=== PATIENT | female | born 2005 | race Hispanic/Latino ===

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

== ENCOUNTER 2023-05-08 00:14 | Inpatient (IN) | payer OTHER ==
--- OUTSIDE RECORDS SUMMARY | 2023-05-08 00:24 | XMS REPORT | Continuity of Care Document ---
Author Name Unknown Address [address] [place] [address] [facility] Address [address] [place] [address] Care Team Providers Care Vice President Of Operations Name Role Phone Rupert Mabry Primary Care Physician + [phone] JABARI CRUZ K.HLuis Manuel Attending Clinician UnavailMARCIAL Fritz Attending Clinician UnavailMARCIAL Fritz Attending Clinician Unavailoscar Cruz MD, Jabari K.H. Attending Clinician + [phone] Doctor Unassigned, [place] Attending Clinician U kendall Leiva MD, [place] Attending Clinician + [phone] Yue Leroy MD Attending Clinician [phone] Brando Yao MD Attending Clinician [phone] Pcp-Lab Attending Clinician Unavailable YUE LEROY Attending Clinician Unavail able Justin Alejo MD Attending Clinician +[phone] Lab, Ang - Db Attending Clinician Unavailable JUSTIN ALEJO Attending Clinician Unavailable Efrain GUAJARDO, Von Attending Clinician +[phone] Rupert Mabry Attending Clinician [phone] KATHLEEN WALKER Attending Clinician Unavailable Edwin Denny MD Attending Clinician [phone] Kathleen Walker MD Attending Clinician [phone] Katie Garcia Attending Clinician Dejon Bains Attending Clinician [phone] DEJON MALIN Attending Clinician Unavailable Payers Payer Name Policy Type Policy Number Effective Date Expirati on Date Source Problems Condition Name Condition Details Condition Category Status Onset Date Resolution Date Last Treatment Date Treating Clinician Comments Source Irregular menstrual cycle Irregular menstrual cycle Disease Active 10-05 00:00: 00 [facility] Dysmenorrh ea Dysmenorrh ea Disease Active 10-05 00:00: 00 [facility] Oral contracept riana pill surveillan ce Oral contracept riana pill surveillan ce Disease Active 10-05 00:00: 00 [facility] Down syndrome Down syndrome Disease Active 10-05 00:00: 00 [facility] Acne, unspecifie d acne type Acne, unspecifie d acne type Disease Active 10-05 00:00: 00 [facility] Other atopic dermatitis Other atopic dermatitis Disease Active 10-05 00:00: 00 [facility] Cutaneous abscess of buttock Cutaneous abscess of buttock Disease Active 10-05 00:00: 00 [facility] BMI 31.0-31.9, adult BMI 31.0-31.9, adult Disease Active 10-05 00:00: 00 [facility] 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 09-02 00:00: 00 [facility] Allergies, Adverse Reactions, Alerts Allergy Name Allergy Type Status Severity Reaction(s) Onset Date Inactive Date Treating Clinician Comments Source NO KNOWN ALLERGIE S Drug Class Active [facility] Social History Social Habit Start Date Stop Date Quantity Comments Source Gender identity [facility] Sexual orientation U [facility] Alcohol intake 2022-10-05 00:00:00 2022-10-05 00:00:00 Lifetime non-drinker (finding) [facility] Exposure to SARS-CoV-2 (event) 2022-07-03 00:00:00 2022-07-13 13:49:00 Not sure [facility] Tobacco use and exposure 2022-07-13 00:00:00 2022-07-13 00:00:00 Smokeless tobacco non-user [facility] History of Social function 2021-09-02 00:00:00 2021-09-02 00:00:00 [facility] Sex Assigned At 2005 00:00:00 2005 00:00:00 [facility] Smoking Status Start Date Stop Date Source Never smoked tobacco [facility] Medications Ordered Medication Name Filled Medication Name Start Date Stop Date Current Medication? Ordering Clinician Indication Dosage Frequency Signature (SIG) Comments Components Source triamcinolo ne acetonide 0.1 % cream 10-05 00:00: 00 Yes [id number] Apply to area(s) 2 (two) times daily as needed for Itching (back). [facility] mupirocin 2 % ointment 10-05 00:00: 00 Yes [id number] Apply to area(s) 3 (three) times daily. [facility] norethindro ne-e.estrad ioL-iron (BLISOVI FE 1.5/30, 28,) 1.5 mg-30 mcg (21)/75 mg (7) per tablet 10-05 00:00: 00 Yes [id number] 1{tbl} Take 1 tablet by mouth in the morning. [facility] Benzoyl Peroxide 2.5 % gel 10-05 00:00: 00 Yes [id number] Apply to area(s) 2 (two) times daily as needed (acne). [facility] triamcinolo ne acetonide 0.1 % cream 10-05 00:00: 00 Yes [id number] Apply to area(s) 2 (two) times daily as needed for Itching (back). [facility] mupirocin 2 % ointment 10-05 00:00: 00 Yes [id number] Apply to area(s) 3 (three) times daily. [facility] norethindro ne-e.estrad ioL-iron (BLISOVI FE 1.5/30, 28,) 1.5 mg-30 mcg (21)/75 mg (7) per tablet 10-05 00:00: 00 Yes [id number] 1{tbl} Take 1 tablet by mouth in the morning. [facility] Benzoyl Peroxide 2.5 % gel 10-05 00:00: 00 Yes [id number] Apply to area(s) 2 (two) times daily as needed (acne). [facility] triamcinolo ne acetonide 0.1 % cream 10-05 00:00: 00 Yes [id number] Apply to area(s) 2 (two) times daily as needed for Itching (back). [facility] mupirocin 2 % ointment 10-05 00:00: 00 Yes [id number] Apply to area(s) 3 (three) times daily. [facility] norethindro ne-e.estrad ioL-iron (BLISOVI FE 1.5/30, 28,) 1.5 mg-30 mcg (21)/75 mg (7) per tablet 10-05 00:00: 00 Yes [id number] 1{tbl} Take 1 tablet by mouth in the morning. [facility] Benzoyl Peroxide 2.5 % gel 10-05 00:00: 00 Yes [id number] Apply to area(s) 2 (two) times daily as needed (acne). [facility] norethindro ne-e.estrad iol-iron (BLISOVI 24 FE ORAL) 07-13 15:26: 33 07-13 00:00 :00 No Take by mouth. [facility] norethindro ne-e.estrad iol-iron (BLISOVI 24 FE ORAL) 07-13 15:26: 33 07-13 00:00 :00 No Take by mouth. [facility] fluticasone propion/charlie meterol (ADVAIR DISKUS INHALE) 07-13 14:06: 50 Yes Inhale. [facility] montelukast sodium (MONTELUKAS T ORAL) 07-13 14:06: 50 Yes Take by mouth. [facility] marintobiasneli tessluisad iol-iron (BLISOVI 24 FE ORAL) 07-13 14:06: 50 Yes Take by mouth. [facility] fluticasone propion/charlie meterol (ADVAIR DISKUS INHALE) 07-13 14:06: 50 Yes Inhale. [facility] montelukast sodium (MONTELUKAS T ORAL) 07-13 14:06: 50 Yes Take by mouth. [facility] fluticasone propion/charlie meterol (ADVAIR DISKUS INHALE) 07-13 14:06: 50 Yes Inhale. [facility] montelukast sodium (MONTELUKAS T ORAL) 07-13 14:06: 50 Yes Take by mouth. [facility] fluticasone propion/charlie meterol (ADVAIR DISKUS INHALE) 07-13 14:06: 50 Yes Inhale. [facility] montelukast sodium (MONTELUKAS T ORAL) 07-13 14:06: 50 Yes Take by mouth. [facility] fluticasone propion/charlie meterol (ADVAIR DISKUS INHALE) 07-13 14:06: 50 Yes Inhale. [facility] montelukast sodium (MONTELUKAS T ORAL) 07-13 14:06: 50 Yes Take by mouth. [facility] fluticasone propion/charlie meterol (ADVAIR DISKUS INHALE) 07-13 14:06: 50 Yes Inhale. [facility] montelukast sodium (MONTELUKAS T ORAL) 07-13 14:06: 50 Yes Take by mouth. [facility] fluticasone propion/charlie meterol (ADVAIR DISKUS INHALE) 07-13 14:06: 50 Yes Inhale. [facility] montelukast sodium (MONTELUKAS T ORAL) 07-13 14:06: 50 Yes Take by mouth. [facility] fluticasone propion/charlie meterol (ADVAIR DISKUS INHALE) 07-13 14:06: 50 Yes Inhale. [facility] montelukast sodium (MONTELUKAS T ORAL) 07-13 14:06: 50 Yes Take by mouth. [facility] norethindro ne-e.estrad ioL-iron (BLISOVI FE 1.5/, 28,) 1.5 mg-30 mcg (21)/75 mg (7) per tablet 07-13 00:00: 00 Yes [id number] 1{tbl} Take 1 tablet by mouth in the morning. [facility] ibuprofen 600 mg tablet 07-13 00:00: 00 Yes [id number] 600mg Take 1 tablet by mouth every 6 (six) hours as needed for Pain (scale 4-6). [facility] acetonide 0.1 % cream 07-13 00:00: 00 Yes [id number] Apply to area(s) 2 (two) times daily. [facility] mupirocin 2 % ointment 07-13 00:00: 00 Yes [id number] Apply to area(s) 3 (three) times daily. [facility] norethindro ne-e.estrad ioL-iron (BLISOVI FE 1.5/30, 28,) 1.5 mg-30 mcg (21)/75 mg (7) per tablet 07-13 00:00: 00 Yes [id number] 1{tbl} Take 1 tablet by mouth in the morning. [facility] ibuprofen 600 mg tablet 07-13 00:00: 00 Yes [id number] 600mg Take 1 tablet by mouth every 6 (six) hours as needed for Pain (scale 4-6). [facility] triamcinolo ne acetonide 0.1 % cream 07-13 00:00: 00 Yes [id number] Apply to area(s) 2 (two) times daily. [facility]int[facility] 07-13 00:00: 00 Yes [id number] Apply to area(s) 3 (three) times daily. [facility] ioL-iron (BLISOVI FE 1.5/, 28,) 1.5 mg-30 mcg (21)/75 mg (7) per tablet 07-13 00:00: 00 Yes [id number] 1{tbl} Take 1 tablet by mouth in the morning. [facility] ibuprofen 600 mg tablet 07-13 00:00: 00 Yes [id number] 600mg Take 1 tablet by mouth every 6 (six) hours as needed for Pain (scale 4-6). [facility] triamcinolo ne acetonide 0.1 % cream 07-13 00:00: 00 Yes [id number] Apply to area(s) 2 (two) times daily. [facility] mupirocin 2 % ointment 07-13 00:00: 00 Yes [id number] Apply to area(s) 3 (three) times daily. [facility] norethindro ne-e.estrad ioL-iron (BLISOVI FE 1.5, ,) 1.5 mg-30 mcg (21)/75 mg (7) per tablet 07-13 00:00: 00 Yes [id number] 1{tbl} Take 1 tablet by mouth in the morning. [facility] ibuprofen 600 mg tablet 07-13 00:00: 00 Yes [id number] 600mg Take 1 tablet by mouth every 6 (six) hours as needed for Pain (scale 4-6). [facility] triamcinolo ne acetonide 0.1 % cream 07-13 00:00: 00 Yes [id number] Apply to area(s) 2 (two) times daily. [facility] mupirocin 2 % ointment 07-13 00:00: 00 Yes [id number] Apply to area(s) 3 (three) times daily. [facility] ibuprofen 600 mg tablet 07-13 00:00: 00 Yes [id number] 600mg Take 1 tablet by mouth every 6 (six) hours as needed for Pain (scale 4-6). [facility] triamcinolo ne acetonide 0.1 % cream 07-13 00:00: 00 Yes [id number] Apply to area(s) 2 (two) times daily. [facility] ibuprofen 600 mg tablet 07-13 00:00: 00 Yes [id number] 600mg Take 1 tablet by mouth every 6 (six) hours as needed for Pain (scale 4-6). [facility] triamcinolo ne acetonide 0.1 % cream 07-13 00:00: 00 Yes [id number] Apply to area(s) 2 (two) times daily. [facility] ibuprofen 600 mg tablet 07-13 00:00: 00 Yes [id number] 600mg Take 1 tablet by mouth every 6 (six) hours as needed for Pain (scale 4-6). [facility] triamcinolo ne acetonide 0.1 % cream 07-13 00:00: 00 Yes [id number] Apply to area(s) 2 (two) times daily. [facility] norethindro ne-e.estrad ioL-iron (BLISOVI FE 1.5/30, 28,) 1.5 mg-30 mcg (21)/75 mg (7) per tablet 07-13 00:00: 00 10-05 00:00 :00 No [id number] 1{tbl} Take 1 tablet by mouth in the morning. [facility] mupirocin 2 % ointment 07-13 00:00: 00 10-05 00:00 :00 No [id number] Apply to area(s) 3 (three) times daily. [facility] norethindro ne-e.estrad ioL-iron (BLISOVI FE 1.5/30, 28,) 1.5 mg-30 mcg (21)/75 mg (7) per tablet 07-13 00:00: 00 10-05 00:00 :00 No [id number] 1{tbl} Take 1 tablet by mouth in the morning. [facility] mupirocin 2 % ointment 07-13 00:00: 00 10-05 00:00 :00 No [id number] Apply to area(s) 3 (three) times daily. [facility] norethindro ne-e.estrad ioL-iron (BLISOVI FE 1.5/30, 28,) 1.5 mg-30 mcg (21)/75 mg (7) per tablet 07-13 00:00: 00 10-05 00:00 :00 No [id number] 1{tbl} Take 1 tablet by mouth in the morning. [facility] mupirocin 2 % ointment 07-13 00:00: 00 10-05 00:00 :00 No [id number] Apply to area(s) 3 (three) times daily. [facility] sulfaSALAzi ne 500 mg EC tablet 03-02 00:00: 00 Yes [id number] 500mg Take 1 tablet by mouth in the morning and 1 tablet in the evening. [facility] sulfaSALAzi ne 500 mg EC tablet 03-02 00:00: 00 Yes [id number] 500mg Take 1 tablet by mouth in the morning and 1 tablet in the evening. [facility] sulfaSALAzi ne 500 mg EC tablet 03-02 00:00: 00 Yes [id number] 500mg Take 1 tablet by mouth in the morning and 1 tablet in the evening. [facility] sulfaSALAzi ne 500 mg EC tablet 03-02 00:00: 00 Yes [id number] 500mg Take 1 tablet by mouth in the morning and 1 tablet in the evening. [facility] sulfaSALAzi ne 500 mg EC tablet 03-02 00:00: 00 Yes [id number] 500mg Take 1 tablet by mouth in the morning and 1 tablet in the evening. [facility] sulfaSALAzi ne 500 mg EC tablet 03-02 00:00: 00 Yes [id number] 500mg Take 1 tablet by mouth in the morning and 1 tablet in the evening. [facility] sulfaSALAzi ne 500 mg EC tablet 03-02 00:00: 00 Yes [id number] 500mg Take 1 tablet by mouth in the morning and 1 tablet in the evening. [facility] sulfaSALAzi ne 500 mg EC tablet 03-02 00:00: 00 Yes [id number] 500mg Take 1 tablet by mouth in the morning and 1 tablet in the evening. [facility] sulfaSALAzi ne 500 mg EC tablet 03-02 00:00: 00 Yes [id number] 500mg Take 1 tablet by mouth in the morning and 1 tablet in the evening. [facility] sulfaSALAzi ne 500 mg EC tablet 03-02 00:00: 00 Yes [id number] 500mg Take 1 tablet by mouth in the morning and 1 tablet in the evening. [facility] sulfaSALAzi ne 500 mg EC tablet 03-02 00:00: 00 Yes [id number] 500mg Take 1 tablet by mouth in the morning and 1 tablet in the evening. [facility] sulfaSALAzi ne 500 mg EC tablet 03-02 00:00: 00 Yes [id number] 500mg Take 1 tablet by mouth in the morning and 1 tablet in the evening. [facility] sulfaSALAzi ne 500 mg EC tablet 03-02 00:00: 00 Yes [id number] 500mg Take 1 tablet by mouth in the morning and 1 tablet in the evening. [facility] sulfaSALAzi ne 500 mg EC tablet 03-02 00:00: 00 Yes [id number] 500mg Take 1 tablet by mouth in the morning and 1 tablet in the evening. [facility] sulfaSALAzi ne 500 mg EC tablet - 00:00: 00 Yes [id number] 500mg Take 1 tablet by mouth in the morning and 1 tablet in the evening. [facility] fluticasone propion/charlie meterol (ADVAIR DISKUS INHALE) 2021-02 015 19:39: 13 Yes Inhale. [facility] montelukast sodium (MONTELUKAS T ORAL) 2021-02 015 19:39: 13 Yes Take by mouth. [facility] fluticasone propion/charlie meterol (ADVAIR DISKUS INHALE) 2021-02 015 19:39: 13 Yes Inhale. [facility] montelukast sodium (MONTELUKAS T ORAL) 2021-02 015 19:39: 13 Yes Take by mouth. [facility] fluticasone propion/charlie meterol (ADVAIR DISKUS INHALE) 2021-02 015 19:39: 13 Yes Inhale. [facility] montelukast sodium (MONTELUKAS T ORAL) 2021-02 015 19:39: 13 Yes Take by mouth. [facility] fluticasone propion/charlie meterol (ADVAIR DISKUS INHALE) 2021-02 015 19:39: 13 Yes Inhale. [facility] montelukast sodium (MONTELUKAS T ORAL) 2021-02 015 19:39: 13 Yes Take by mouth. [facility] fluticasone propion/charlie meterol (ADVAIR DISKUS INHALE) 2021-02 015 19:39: 13 Yes Inhale. [facility] montelukast sodium (MONTELUKAS T ORAL) 2021-02 015 19:39: 13 Yes Take by mouth. [facility] fluticasone propion/charlie meterol (ADVAIR DISKUS INHALE) 2021-02 015 19:39: 13 Yes Inhale. [facility] montelukast sodium (MONTELUKAS T ORAL) 2021-02 0-15 19:39: 13 Yes Take by mouth. [facility] fluticasone propion/charlie meterol (ADVAIR DISKUS INHALE) 2021-02 015 19:39: 13 Yes Inhale. [facility] montelukast sodium (MONTELUKAS T ORAL) 2021-02 015 19:39: 13 Yes Take by mouth. [facility] fluticasone propion/charlie meterol (ADVAIR DISKUS INHALE) 2021-02 015 19:39: 13 Yes Inhale. [facility] montelukast sodium (MONTELUKAS T ORAL) 2021-02 015 19:39: 13 Yes Take by mouth. [facility] fluticasone propion/charlie meterol (ADVAIR DISKUS INHALE) 2021-02 015 19:39: 13 Yes Inhale. [facility] montelukast sodium (MONTELUKAS T ORAL) 2021-02 015 19:39: 13 Yes Take by mouth. [facility] fluticasone propion/charlie meterol (ADVAIR DISKUS INHALE) 2021-02 015 19:39: 13 Yes Inhale. [facility] montelukast sodium (MONTELUKAS T ORAL) 2021-02 015 19:39: 13 Yes Take by mouth. [facility] fluticasone propion/charlie meterol (ADVAIR DISKUS INHALE) 2021-02 015 19:39: 13 Yes Inhale. [facility] montelukast sodium (MONTELUKAS T ORAL) 2021-02 015 19:39: 13 Yes Take by mouth. [facility] fluticasone propion/charlie meterol (ADVAIR DISKUS INHALE) 2021-02 015 19:39: 13 Yes Inhale. [facility] montelukast sodium (MONTELUKAS T ORAL) 2021-02 015 19:39: 13 Yes Take by mouth. [facility] meloxicam 7.5 mg tablet 2021-02 0-14 00:00: 00 02-04 05:59 :00 No [id number] 7.5mg Take 1 tablet by mouth in the morning for 60 days. [facility] meloxicam 7.5 mg tablet 2021-02 00:00: 00 02-04 05:59 :00 No [id number] 7.5mg Take 1 tablet by mouth in the morning for 60 days. [facility] meloxicam 7.5 mg tablet 2021-02 00:00: 00 02-04 05:59 :00 No [id number] 7.5mg Take 1 tablet by mouth in the morning for 60 days. [facility] meloxicam 7.5 mg tablet 2021-02 00:00: 00 02-04 05:59 :00 No [id number] 7.5mg Take 1 tablet by mouth in the morning for 60 days. [facility] meloxicam 7.5 mg tablet 2021-02 00:00: 00 02-04 05:59 :00 No [id number] 7.5mg Take 1 tablet by mouth in the morning for 60 days. [facility] meloxicam 7.5 mg tablet 2021-02 00:00: 00 02-04 05:59 :00 No [id number] 7.5mg Take 1 tablet by mouth in the morning for 60 days. [facility] JANETH/POLY/HC HILARIO 1% OTIC 11-10 00:00: 00 No AMOX/K CLAV TAB [id number] 11-10 00:00: 00 No JANETH/POLY/HC HILARIO 1% OTIC - 00:00: 00 No AMOX/K CLAV TAB [id number] 11-10 00:00: 00 No JANETH/POLY/HC HILARIO 1% OTIC - 00:00: 00 No AMOX/K CLAV TAB [id number] - 00:00: 00 No &lt 202-0 7- 00:00: 00 No TAKE 1 TABLET BY MOUTH TWICE DAILY 0 09-13 00:00: 00 No &lt 2022-0 09-13 00:00: 00 No 300 &lt 2022-0 09-13 00:00: 00 No 20 &lt 2022-0 09-13 00:00: 00 No Macrobid 100 mg capsule 0 09-13 00:00: 00 No 1mg &lt 2022-0 09-13 00:00: 00 No TAKE 1 TABLET BY MOUTH TWICE DAILY 2021-0 09-13 00:00: 00 No &lt 2022-0 09-13 00:00: 00 No 300 &lt 2022-0 09-13 00:00: 00 No 20 &lt 2022-0 09-13 00:00: 00 No Macrobid 100 mg capsule 2021-0 09-13 00:00: 00 No 1mg &lt 2022-0 09-13 00:00: 00 No TAKE 1 TABLET BY MOUTH TWICE DAILY 0 09-13 00:00: 00 No &lt 2022-0 09-13 00:00: 00 No 300 &lt 2022-0 09-13 00:00: 00 No 20 &lt 2022-0 09-13 00:00: 00 No Macrobid 100 mg capsule 0 09-13 00:00: 00 No 1mg &lt 2022-0 09-13 00:00: 00 No TAKE 1 TABLET BY MOUTH TWICE DAILY 0 09-13 00:00: 00 No &lt 2022-0 09-13 00:00: 00 No 300 &lt 2022-0 09-13 00:00: 00 No 20 &lt 2022-0 09-13 00:00: 00 No APPLY TO AREA TWICE DAILY NEEDED FOR RASH OR ITCHING. 2021-0 09-02 00:00: 00 No APPLY TO AREA TWICE DAILY NEEDED FOR RASH OR ITCHING. 0 09-02 00:00: 00 No APPLY TO AREA TWICE DAILY NEEDED FOR RASH OR ITCHING. 2021-0 09-02 00:00: 00 No APPLY TO AREA TWICE DAILY NEEDED FOR RASH OR ITCHING. 2021-0 09-02 00:00: 00 No amoxicillin 875 mg-potassiu m clavulanate 125 mg tablet 0 08-30 00:00: 00 No 1mg &lt 2022-0 08-30 00:00: 00 No &lt 2-0 08-30 00:00: 00 No APPLY TO AREA TWICE DAILY NEEDED FOR RASH OR ITCHING. 0 08-30 00:00: 00 No Dose Unknown 0 08-30 00:00: 00 No amoxicillin 875 mg-potassiu m clavulanate 125 mg tablet 0 08-30 00:00: 00 No 1mg &lt 2021-0 08-30 00:00: 00 No &lt 2021-0 08-30 00:00: 00 No APPLY TO AREA TWICE DAILY NEEDED FOR RASH OR ITCHING. 0 08-30 00:00: 00 No Dose Unknown 0 08-30 00:00: 00 No amoxicillin 875 mg-potassiu m clavulanate 125 mg tablet 0 08-30 00:00: 00 No 1mg &lt 0 08-30 00:00: 00 No &lt 2021-0 08-30 00:00: 00 No APPLY TO AREA TWICE DAILY NEEDED FOR RASH OR ITCHING. 0 08-30 00:00: 00 No Dose Unknown 0 08-30 00:00: 00 No amoxicillin 875 mg-potassiu m clavulanate 125 mg tablet 0 08-30 00:00: 00 No 1mg &lt 0 08-30 00:00: 00 No &lt 2021-0 08-30 00:00: 00 No APPLY TO AREA TWICE DAILY NEEDED FOR RASH OR ITCHING. 0 08-30 00:00: 00 No Dose Unknown 0 08-30 00:00: 00 No omeprazole 20 mg capsule,del ayed release 2021-0 08-05 00:00: 00 No 1mg omeprazole 20 mg capsule,del ayed release 2021-0 08-05 00:00: 00 No 1mg omeprazole 20 mg capsule,del ayed release 2021-0 08-05 00:00: 00 No 1mg omeprazole 20 mg capsule,del ayed release 2021-0 08-05 00:00: 00 No 1mg clindamycin 1 % gel 0 07-23 00:00: 00 Yes [id number] Apply to affected area(s) 2 (two) times daily as needed for Rash (buttocks) . [facility] ammonium lactate 12 % cream 07-23 00:00: 00 Yes [id number] Apply to area(s) as needed (calluses on feet). [facility] fluorouraci L 5 % cream 07-23 00:00: 00 Yes [id number] Apply to area(s) at bedtime. [facility] triamcinolo ne acetonide 0.1 % cream 07-23 00:00: 00 Yes [id number] Apply to area(s) 2 (two) times daily as needed for Itching (back). [facility] mometasone 0.1 % lotion 07-23 00:00: 00 Yes [id number] Apply to area(s) 2 (two) times daily as needed for Rash or Itching (scalp). [facility] clindamycin 1 % gel 07-23 00:00: 00 Yes [id number] Apply to affected area(s) 2 (two) times daily as needed for Rash (buttocks) . [facility] ammonium lactate 12 % cream 07-23 00:00: 00 Yes [id number] Apply to area(s) as needed (calluses on feet). [facility] fluorouraci L 5 % cream 07-23 00:00: 00 Yes [id number] Apply to area(s) at bedtime. [facility] triamcinolo ne acetonide 0.1 % cream 07-23 00:00: 00 Yes [id number] Apply to area(s) 2 (two) times daily as needed for Itching (back). [facility] mometasone 0.1 % lotion 07-23 00:00: 00 Yes [id number] Apply to area(s) 2 (two) times daily as needed for Rash or Itching (scalp). [facility] clindamycin 1 % gel 07-23 00:00: 00 Yes [id number] Apply to affected area(s) 2 (two) times daily as needed for Rash (buttocks) . [facility] ammonium lactate 12 % cream 07-23 00:00: 00 Yes [id number] Apply to area(s) as needed (calluses on feet). [facility] fluorouraci L 5 % cream 07-23 00:00: 00 Yes [id number] Apply to area(s) at bedtime. [facility] triamcinolo ne acetonide 0.1 % cream 07-23 00:00: 00 Yes [id number] Apply to area(s) 2 (two) times daily as needed for Itching (back). [facility] mometasone 0.1 % lotion 07-23 00:00: 00 Yes [id number] Apply to area(s) 2 (two) times daily as needed for Rash or Itching (scalp). [facility] clindamycin 1 % gel 07-23 00:00: 00 Yes [id number] Apply to affected area(s) 2 (two) times daily as needed for Rash (buttocks) . [facility] ammonium lactate 12 % cream 07-23 00:00: 00 Yes [id number] Apply to area(s) as needed (calluses on feet). [facility] fluorouraci L 5 % cream 07-23 00:00: 00 Yes [id number] Apply to area(s) at bedtime. [facility] triamcinolo ne acetonide 0.1 % cream 07-23 00:00: 00 Yes [id number] Apply to area(s) 2 (two) times daily as needed for Itching (back). [facility] mometasone 0.1 % lotion 07-23 00:00: 00 Yes [id number] Apply to area(s) 2 (two) times daily as needed for Rash or Itching (scalp). [facility] clindamycin 1 % gel 07-23 00:00: 00 Yes [id number] Apply to affected area(s) 2 (two) times daily as needed for Rash (buttocks) . [facility] ammonium lactate 12 % cream 07-23 00:00: 00 Yes [id number] Apply to area(s) as needed (calluses on feet). [facility] fluorouraci L 5 % cream 07-23 00:00: 00 Yes [id number] Apply to area(s) at bedtime. [facility] triamcinolo ne acetonide 0.1 % cream 07-23 00:00: 00 Yes [id number] Apply to area(s) 2 (two) times daily as needed for Itching (back). [facility] mometasone 0.1 % lotion 07-23 00:00: 00 Yes [id number] Apply to area(s) 2 (two) times daily as needed for Rash or Itching (scalp). [facility] clindamycin 1 % gel 07-23 00:00: 00 Yes [id number] Apply to affected area(s) 2 (two) times daily as needed for Rash (buttocks) . [facility] ammonium lactate 12 % cream 07-23 00:00: 00 Yes [id number] Apply to area(s) as needed (calluses on feet). [facility] fluorouraci L 5 % cream 07-23 00:00: 00 Yes [id number] Apply to area(s) at bedtime. [facility] triamcinolo ne acetonide 0.1 % cream 07-23 00:00: 00 Yes [id number] Apply to area(s) 2 (two) times daily as needed for Itching (back). [facility] mometasone 0.1 % lotion 07-23 00:00: 00 Yes [id number] Apply to area(s) 2 (two) times daily as needed for Rash or Itching (scalp). [facility] clindamycin 1 % gel 07-23 00:00: 00 Yes [id number] Apply to affected area(s) 2 (two) times daily as needed for Rash (buttocks) . [facility] ammonium lactate 12 % cream 07-23 00:00: 00 Yes [id number] Apply to area(s) as needed (calluses on feet). [facility] fluorouraci L 5 % cream 07-23 00:00: 00 Yes [id number] Apply to area(s) at bedtime. [facility] triamcinolo ne acetonide 0.1 % cream 07-23 00:00: 00 Yes [id number] Apply to area(s) 2 (two) times daily as needed for Itching (back). [facility] mometasone 0.1 % lotion 07-23 00:00: 00 Yes [id number] Apply to area(s) 2 (two) times daily as needed for Rash or Itching (scalp). [facility] clindamycin 1 % gel 07-23 00:00: 00 Yes [id number] Apply to affected area(s) 2 (two) times daily as needed for Rash (buttocks) . [facility] ammonium lactate 12 % cream 07-23 00:00: 00 Yes [id number] Apply to area(s) as needed (calluses on feet). [facility] fluorouraci L 5 % cream 07-23 00:00: 00 Yes [id number] Apply to area(s) at bedtime. [facility] triamcinolo ne acetonide 0.1 % cream 07-23 00:00: 00 Yes [id number] Apply to area(s) 2 (two) times daily as needed for Itching (back). [facility] mometasone 0.1 % lotion 07-23 00:00: 00 Yes [id number] Apply to area(s) 2 (two) times daily as needed for Rash or Itching (scalp). [facility] clindamycin 1 % gel 07-23 00:00: 00 Yes [id number] Apply to affected area(s) 2 (two) times daily as needed for Rash (buttocks) . [facility] ammonium lactate 12 % cream 07-23 00:00: 00 Yes [id number] Apply to area(s) as needed (calluses on feet). [facility] fluorouraci L 5 % cream 07-23 00:00: 00 Yes [id number] Apply to area(s) at bedtime. [facility] triamcinolo ne acetonide 0.1 % cream 07-23 00:00: 00 Yes [id number] Apply to area(s) 2 (two) times daily as needed for Itching (back). [facility] mometasone 0.1 % lotion 07-23 00:00: 00 Yes [id number] Apply to area(s) 2 (two) times daily as needed for Rash or Itching (scalp). [facility] clindamycin 1 % gel 07-23 00:00: 00 Yes [id number] Apply to affected area(s) 2 (two) times daily as needed for Rash (buttocks) . [facility] ammonium lactate 12 % cream 07-23 00:00: 00 Yes [id number] Apply to area(s) as needed (calluses on feet). [facility] fluorouraci L 5 % cream 07-23 00:00: 00 Yes [id number] Apply to area(s) at bedtime. [facility] triamcinolo ne acetonide 0.1 % cream 07-23 00:00: 00 Yes [id number] Apply to area(s) 2 (two) times daily as needed for Itching (back). [facility] mometasone 0.1 % lotion 07-23 00:00: 00 Yes [id number] Apply to area(s) 2 (two) times daily as needed for Rash or Itching (scalp). [facility] clindamycin 1 % gel 07-23 00:00: 00 Yes [id number] Apply to affected area(s) 2 (two) times daily as needed for Rash (buttocks) . [facility] ammonium lactate 12 % cream 07-23 00:00: 00 Yes [id number] Apply to area(s) as needed (calluses on feet). [facility] fluorouraci L 5 % cream 07-23 00:00: 00 Yes [id number] Apply to area(s) at bedtime. [facility] triamcinolo ne acetonide 0.1 % cream 07-23 00:00: 00 Yes [id number] Apply to area(s) 2 (two) times daily as needed for Itching (back). [facility] mometasone 0.1 % lotion 07-23 00:00: 00 Yes [id number] Apply to area(s) 2 (two) times daily as needed for Rash or Itching (scalp). [facility] clindamycin 1 % gel 07-23 00:00: 00 Yes [id number] Apply to affected area(s) 2 (two) times daily as needed for Rash (buttocks) . [facility] ammonium lactate 12 % cream 07-23 00:00: 00 Yes [id number] Apply to area(s) as needed (calluses on feet). [facility] fluorouraci L 5 % cream 07-23 00:00: 00 Yes [id number] Apply to area(s) at bedtime. [facility] triamcinolo ne acetonide 0.1 % cream 07-23 00:00: 00 Yes [id number] Apply to area(s) 2 (two) times daily as needed for Itching (back). [facility] mometasone 0.1 % lotion 07-23 00:00: 00 Yes [id number] Apply to area(s) 2 (two) times daily as needed for Rash or Itching (scalp). [facility] clindamycin 1 % gel 07-23 00:00: 00 Yes [id number] Apply to affected area(s) 2 (two) times daily as needed for Rash (buttocks) . [facility] ammonium lactate 12 % cream 07-23 00:00: 00 Yes [id number] Apply to area(s) as needed (calluses on feet). [facility] fluorouraci L 5 % cream 07-23 00:00: 00 Yes [id number] Apply to area(s) at bedtime. [facility] triamcinolo ne acetonide 0.1 % cream 07-23 00:00: 00 Yes [id number] Apply to area(s) 2 (two) times daily as needed for Itching (back). [facility] mometasone 0.1 % lotion 07-23 00:00: 00 Yes [id number] Apply to area(s) 2 (two) times daily as needed for Rash or Itching (scalp). [facility] clindamycin 1 % gel 07-23 00:00: 00 Yes [id number] Apply to affected area(s) 2 (two) times daily as needed for Rash (buttocks) . [facility] ammonium lactate 12 % cream 07-23 00:00: 00 Yes [id number] Apply to area(s) as needed (calluses on feet). [facility] fluorouraci L 5 % cream 07-23 00:00: 00 Yes [id number] Apply to area(s) at bedtime. [facility] triamcinolo ne acetonide 0.1 % cream 07-23 00:00: 00 Yes [id number] Apply to area(s) 2 (two) times daily as needed for Itching (back). [facility] mometasone 0.1 % lotion 07-23 00:00: 00 Yes [id number] Apply to area(s) 2 (two) times daily as needed for Rash or Itching (scalp). [facility] clindamycin 1 % gel 07-23 00:00: 00 Yes [id number] Apply to affected area(s) 2 (two) times daily as needed for Rash (buttocks) . [facility] ammonium lactate 12 % cream 07-23 00:00: 00 Yes [id number] Apply to area(s) as needed (calluses on feet). [facility] fluorouraci L 5 % cream 07-23 00:00: 00 Yes [id number] Apply to area(s) at bedtime. [facility] triamcinolo ne acetonide 0.1 % cream 07-23 00:00: 00 Yes [id number] Apply to area(s) 2 (two) times daily as needed for Itching (back). [facility] mometasone 0.1 % lotion 07-23 00:00: 00 Yes [id number] Apply to area(s) 2 (two) times daily as needed for Rash or Itching (scalp). [facility] clindamycin 1 % gel 07-23 00:00: 00 Yes [id number] Apply to affected area(s) 2 (two) times daily as needed for Rash (buttocks) . [facility] ammonium lactate 12 % cream 07-23 00:00: 00 Yes [id number] Apply to area(s) as needed (calluses on feet). [facility] fluorouraci L 5 % cream 07-23 00:00: 00 Yes [id number] Apply to area(s) at bedtime. [facility] triamcinolo ne acetonide 0.1 % cream 07-23 00:00: 00 Yes [id number] Apply to area(s) 2 (two) times daily as needed for Itching (back). [facility] mometasone 0.1 % lotion 07-23 00:00: 00 Yes [id number] Apply to area(s) 2 (two) times daily as needed for Rash or Itching (scalp). [facility] clindamycin 1 % gel 07-23 00:00: 00 Yes [id number] Apply to affected area(s) 2 (two) times daily as needed for Rash (buttocks) . [facility] ammonium lactate 12 % cream 07-23 00:00: 00 Yes [id number] Apply to area(s) as needed (calluses on feet). [facility] fluorouraci L 5 % cream 07-23 00:00: 00 Yes [id number] Apply to area(s) at bedtime. [facility] triamcinolo ne acetonide 0.1 % cream 07-23 00:00: 00 Yes [id number] Apply to area(s) 2 (two) times daily as needed for Itching (back). [facility] mometasone 0.1 % lotion 07-23 00:00: 00 Yes [id number] Apply to area(s) 2 (two) times daily as needed for Rash or Itching (scalp). [facility] clindamycin 1 % gel 07-23 00:00: 00 Yes [id number] Apply to affected area(s) 2 (two) times daily as needed for Rash (buttocks) . [facility] ammonium lactate 12 % cream 07-23 00:00: 00 Yes [id number] Apply to area(s) as needed (calluses on feet). [facility] fluorouraci L 5 % cream 07-23 00:00: 00 Yes [id number] Apply to area(s) at bedtime. [facility] triamcinolo ne acetonide 0.1 % cream 07-23 00:00: 00 Yes [id number] Apply to area(s) 2 (two) times daily as needed for Itching (back). [facility] mometasone 0.1 % lotion 07-23 00:00: 00 Yes [id number] Apply to area(s) 2 (two) times daily as needed for Rash or Itching (scalp). [facility] clindamycin 1 % gel 07-23 00:00: 00 Yes [id number] Apply to affected area(s) 2 (two) times daily as needed for Rash (buttocks) . [facility] ammonium lactate 12 % cream 07-23 00:00: 00 Yes [id number] Apply to area(s) as needed (calluses on feet). [facility] fluorouraci L 5 % cream 07-23 00:00: 00 Yes [id number] Apply to area(s) at bedtime. [facility] triamcinolo ne acetonide 0.1 % cream 07-23 00:00: 00 Yes [id number] Apply to area(s) 2 (two) times daily as needed for Itching (back). [facility] mometasone 0.1 % lotion 07-23 00:00: 00 Yes [id number] Apply to area(s) 2 (two) times daily as needed for Rash or Itching (scalp). [facility] clindamycin 1 % gel 07-23 00:00: 00 Yes [id number] Apply to affected area(s) 2 (two) times daily as needed for Rash (buttocks) . [facility] ammonium lactate 12 % cream 07-23 00:00: 00 Yes [id number] Apply to area(s) as needed (calluses on feet). [facility] fluorouraci L 5 % cream 07-23 00:00: 00 Yes [id number] Apply to area(s) at bedtime. [facility] triamcinolo ne acetonide 0.1 % cream 07-23 00:00: 00 Yes [id number] Apply to area(s) 2 (two) times daily as needed for Itching (back). [facility] mometasone 0.1 % lotion 07-23 00:00: 00 Yes [id number] Apply to area(s) 2 (two) times daily as needed for Rash or Itching (scalp). [facility] clindamycin 1 % gel 07-23 00:00: 00 Yes [id number] Apply to affected area(s) 2 (two) times daily as needed for Rash (buttocks) . [facility] ammonium lactate 12 % cream 07-23 00:00: 00 Yes [id number] Apply to area(s) as needed (calluses on feet). [facility] fluorouraci L 5 % cream 07-23 00:00: 00 Yes [id number] Apply to area(s) at bedtime. [facility] triamcinolo ne acetonide 0.1 % cream 07-23 00:00: 00 Yes [id number] Apply to area(s) 2 (two) times daily as needed for Itching (back). [facility] mometasone 0.1 % lotion 07-23 00:00: 00 Yes [id number] Apply to area(s) 2 (two) times daily as needed for Rash or Itching (scalp). [facility] clindamycin 1 % gel 07-23 00:00: 00 Yes [id number] Apply to affected area(s) 2 (two) times daily as needed for Rash (buttocks) . [facility] ammonium lactate 12 % cream 07-23 00:00: 00 Yes [id number] Apply to area(s) as needed (calluses on feet). [facility] fluorouraci L 5 % cream 07-23 00:00: 00 Yes [id number] Apply to area(s) at bedtime. [facility] mometasone 0.1 % lotion 07-23 00:00: 00 Yes [id number] Apply to area(s) 2 (two) times daily as needed for Rash or Itching (scalp). [facility] clindamycin 1 % gel 07-23 00:00: 00 Yes [id number] Apply to affected area(s) 2 (two) times daily as needed for Rash (buttocks) . [facility] ammonium lactate 12 % cream 07-23 00:00: 00 Yes [id number] Apply to area(s) as needed (calluses on feet). [facility] fluorouraci L 5 % cream 07-23 00:00: 00 Yes [id number] Apply to area(s) at bedtime. [facility] mometasone 0.1 % lotion 07-23 00:00: 00 Yes [id number] Apply to area(s) 2 (two) times daily as needed for Rash or Itching (scalp). [facility] clindamycin 1 % gel 07-23 00:00: 00 Yes [id number] Apply to affected area(s) 2 (two) times daily as needed for Rash (buttocks) . [facility] ammonium lactate 12 % cream 07-23 00:00: 00 Yes [id number] Apply to area(s) as needed (calluses on feet). [facility] fluorouraci L 5 % cream 07-23 00:00: 00 Yes [id number] Apply to area(s) at bedtime. [facility] mometasone 0.1 % lotion 07-23 00:00: 00 Yes [id number] Apply to area(s) 2 (two) times daily as needed for Rash or Itching (scalp). [facility] triamcinolo ne acetonide 0.1 % cream 07-23 00:00: 00 10-05 00:00 :00 No [id number] Apply to area(s) 2 (two) times daily as needed for Itching (back). [facility] triamcinolo ne acetonide 0.1 % cream 07-23 00:00: 00 10-05 00:00 :00 No [id number] Apply to area(s) 2 (two) times daily as needed for Itching (back). [facility] triamcinolo ne acetonide 0.1 % cream 07-23 00:00: 00 10-05 00:00 :00 No [id number] Apply to area(s) 2 (two) times daily as needed for Itching (back). [facility] mupirocin 2 % topical ointment - 00:00: 00 No % amoxicillin 875 mg-potassiu m clavulanate 125 mg tablet 07-17 00:00: 00 No 1mg sulfamethox azole 800 mg-trimetho prim 160 mg tablet 07-17 00:00: 00 No 1mg Nexium 20 mg capsule,del ayed release 07-17 00:00: 00 No 1mg mupirocin 2 % topical ointment 07-17 00:00: 00 No % amoxicillin 875 mg-potassiu m clavulanate 125 mg tablet 07-17 00:00: 00 No 1mg sulfamethox azole 800 mg-trimetho prim 160 mg tablet 07-17 00:00: 00 No 1mg Nexium 20 mg capsule,del ayed release 07-17 00:00: 00 No 1mg mupirocin 2 % topical ointment 07-17 00:00: 00 No % amoxicillin 875 mg-potassiu m clavulanate 125 mg tablet 07-17 00:00: 00 No 1mg sulfamethox azole 800 mg-trimetho prim 160 mg tablet 07-17 00:00: 00 No 1mg Nexium 20 mg capsule,del ayed release 07-17 00:00: 00 No 1mg mupirocin 2 % topical ointment 07-17 00:00: 00 No % amoxicillin 875 mg-potassiu m clavulanate 125 mg tablet 07-17 00:00: 00 No 1mg sulfamethox azole 800 mg-trimetho prim 160 mg tablet 07-17 00:00: 00 No 1mg Nexium 20 mg capsule,del ayed release 07-17 00:00: 00 No 1mg fluticasone propion/charlie meterol (ADVAIR DISKUS INHALE) 06-20 13:50: 07 Yes Inhale. [facility] montelukast sodium (MONTELUKAS T ORAL) 06-20 13:50: 07 Yes Take by mouth. [facility] fluticasone propion/charlie meterol (ADVAIR DISKUS INHALE) 06-20 13:50: 07 Yes Inhale. [facility] montelukast sodium (MONTELUKAS T ORAL) 06-20 13:50: 07 Yes Take by mouth. [facility] fluticasone propion/charlie meterol (ADVAIR DISKUS INHALE) 06-20 13:50: 07 Yes Inhale. [facility] montelukast sodium (MONTELUKAS T ORAL) 06-20 13:50: 07 Yes Take by mouth. [facility] fluticasone propion/charlie meterol (ADVAIR DISKUS INHALE) 06-20 13:50: 07 Yes Inhale. [facility] montelukast sodium (MONTELUKAS T ORAL) 06-20 13:50: 07 Yes Take by mouth. [facility] amoxicillin 875 mg-potassiu m clavulanate 125 mg tablet 0 06-16 00:00: 00 No 1mg amoxicillin 875 mg-potassiu m clavulanate 125 mg tablet 0 06-16 00:00: 00 No 1mg amoxicillin 875 mg-potassiu m clavulanate 125 mg tablet 0 06-16 00:00: 00 No 1mg amoxicillin 875 mg-potassiu m clavulanate 125 mg tablet 0 06-16 00:00: 00 No 1mg Dose Unknown 0 06-11 00:00: 00 No Dose Unknown 0 06-11 00:00: 00 No Dose Unknown 0 06-11 00:00: 00 No Dose Unknown 0 06-11 00:00: 00 No Dose Unknown 0 06-11 00:00: 00 No Dose Unknown 0 06-11 00:00: 00 No Dose Unknown 0 06-11 00:00: 00 No Dose Unknown 0 06-11 00:00: 00 No prednisone 10 mg tablet 0 20 00:00: 00 No 1mg sulfamethox azole 800 mg-trimetho prim 160 mg tablet 0 4-20 00:00: 00 No 1mg Dose Unknown 2022-0 4-20 00:00: 00 No Dose Unknown 2022-0 4-20 00:00: 00 No Dose Unknown 2022-0 4-20 00:00: 00 No Dose Unknown 2022-0 4-20 00:00: 00 No Dose Unknown 2022-0 4-20 00:00: 00 No Dose Unknown 2022-0 4-20 00:00: 00 No Dose Unknown 2022-0 4-20 00:00: 00 No Dose Unknown 2022-0 4-20 00:00: 00 No Dose Unknown 2022-0 4-20 00:00: 00 No Dose Unknown 2022-0 4-20 00:00: 00 No Dose Unknown 2022-0 4-20 00:00: 00 No Dose Unknown 2022-0 4-20 00:00: 00 No Dose Unknown 2022-0 4-20 00:00: 00 No Dose Unknown 2022-0 4-20 00:00: 00 No Dose Unknown 2022-0 4-20 00:00: 00 No Dose Unknown 2022-0 4-20 00:00: 00 No Dose Unknown 2022-0 4-20 00:00: 00 No Dose Unknown 2022-0 4-20 00:00: 00 No Dose Unknown 2022-0 4-20 00:00: 00 No Dose Unknown 2022-0 4-20 00:00: 00 No Dose Unknown 2022-0 4-20 00:00: 00 No Dose Unknown 2022-0 4-20 00:00: 00 No Dose Unknown 2022-0 4-20 00:00: 00 No Dose Unknown 2022-0 4-20 00:00: 00 No prednisone 10 mg tablet 2022-0 4-20 00:00: 00 No 1mg sulfamethox azole 800 mg-trimetho prim 160 mg tablet 2022-0 4-20 00:00: 00 No 1mg Dose Unknown 2022-0 4-20 00:00: 00 No Dose Unknown 2022-0 4-20 00:00: 00 No Dose Unknown 2022-0 4-20 00:00: 00 No Dose Unknown 2022-0 4-20 00:00: 00 No Dose Unknown 2022-0 4-20 00:00: 00 No Dose Unknown 2022-0 4-20 00:00: 00 No Dose Unknown 2022-0 4-20 00:00: 00 No Dose Unknown 2022-0 4-20 00:00: 00 No Dose Unknown 2022-0 4-20 00:00: 00 No Dose Unknown 2022-0 4-20 00:00: 00 No Dose Unknown 2022-0 4-20 00:00: 00 No Dose Unknown 2022-0 4-20 00:00: 00 No Dose Unknown 2022-0 4-20 00:00: 00 No Dose Unknown 2022-0 4-20 00:00: 00 No Dose Unknown 2022-0 4-20 00:00: 00 No Dose Unknown 2022-0 4-20 00:00: 00 No Dose Unknown 2022-0 4-20 00:00: 00 No Dose Unknown 2022-0 4-20 00:00: 00 No Dose Unknown 2022-0 4-20 00:00: 00 No Dose Unknown 2022-0 4-20 00:00: 00 No Dose Unknown 2022-0 4-20 00:00: 00 No Dose Unknown 2022-0 4-20 00:00: 00 No Dose Unknown 2022-0 4-20 00:00: 00 No Dose Unknown 2022-0 4-20 00:00: 00 No prednisone 10 mg tablet 2022-0 4-20 00:00: 00 No 1mg sulfamethox azole 800 mg-trimetho prim 160 mg tablet 2022-0 4-20 00:00: 00 No 1mg Dose Unknown 2022-0 4-20 00:00: 00 No Dose Unknown 2022-0 4-20 00:00: 00 No Dose Unknown 2022-0 4-20 00:00: 00 No Dose Unknown 2022-0 4-20 00:00: 00 No Dose Unknown 2022-0 4-20 00:00: 00 No Dose Unknown 2022-0 4-20 00:00: 00 No Dose Unknown 2022-0 4-20 00:00: 00 No Dose Unknown 2022-0 4-20 00:00: 00 No Dose Unknown 2022-0 4-20 00:00: 00 No Dose Unknown 2022-0 4-20 00:00: 00 No Dose Unknown 2022-0 4-20 00:00: 00 No Dose Unknown 2022-0 4-20 00:00: 00 No Dose Unknown 2022-0 4-20 00:00: 00 No Dose Unknown 2022-0 4-20 00:00: 00 No Dose Unknown 2022-0 4-20 00:00: 00 No Dose Unknown 2022-0 4-20 00:00: 00 No Dose Unknown 2022-0 4-20 00:00: 00 No Dose Unknown 2022-0 4-20 00:00: 00 No Dose Unknown 2022-0 4-20 00:00: 00 No Dose Unknown 2022-0 4-20 00:00: 00 No Dose Unknown 2022-0 4-20 00:00: 00 No Dose Unknown 2022-0 4-20 00:00: 00 No Dose Unknown 2022-0 4-20 00:00: 00 No Dose Unknown 2022-0 4-20 00:00: 00 No prednisone 10 mg tablet 2022-0 4-20 00:00: 00 No 1mg sulfamethox azole 800 mg-trimetho prim 160 mg tablet 2022-0 4-20 00:00: 00 No 1mg Dose Unknown 2022-0 4-20 00:00: 00 No Dose Unknown 2022-0 4-20 00:00: 00 No Dose Unknown 2022-0 4-20 00:00: 00 No Dose Unknown 2022-0 4-20 00:00: 00 No Dose Unknown 2022-0 4-20 00:00: 00 No Dose Unknown 2022-0 4-20 00:00: 00 No Dose Unknown 2022-0 4-20 00:00: 00 No Dose Unknown 2022-0 4-20 00:00: 00 No Dose Unknown 2022-0 4-20 00:00: 00 No Dose Unknown 2022-0 4-20 00:00: 00 No Dose Unknown 2022-0 4-20 00:00: 00 No Dose Unknown 2022-0 4-20 00:00: 00 No Dose Unknown 2022-0 4-20 00:00: 00 No Dose Unknown 2022-0 4-20 00:00: 00 No Dose Unknown 2022-0 4-20 00:00: 00 No Dose Unknown 2022-0 4-20 00:00: 00 No Advair Diskus 250 mcg-50 mcg/dose powder for inhalation 2022-0 4-12 00:00: 00 No 1mcg/do se amoxicillin 875 mg-potassiu m clavulanate 125 mg tablet 2022-0 4-12 00:00: 00 No 1mg prednisone 20 mg tablet 2022-0 4-12 00:00: 00 No mg Bromfed DM 2 mg-30 mg-10 mg/5 mL oral syrup 2022-0 4-12 00:00: 00 No 5mg/5 mL Dose Unknown 2022-0 4-12 00:00: 00 No Dose Unknown 2022-0 4-12 00:00: 00 No Dose Unknown 2022-0 4-12 00:00: 00 No Dose Unknown 2022-0 4-12 00:00: 00 No Dose Unknown 2022-0 4-12 00:00: 00 No Dose Unknown 2022-0 4-12 00:00: 00 No Dose Unknown 2022-0 4-12 00:00: 00 No Dose Unknown 2022-0 4-12 00:00: 00 No Dose Unknown 2022-0 4-12 00:00: 00 No Dose Unknown 2022-0 4-12 00:00: 00 No Dose Unknown 2022-0 4-12 00:00: 00 No Dose Unknown 2022-0 4-12 00:00: 00 No Dose Unknown 2022-0 4-12 00:00: 00 No Dose Unknown 2022-0 4-12 00:00: 00 No Dose Unknown 2022-0 4-12 00:00: 00 No Dose Unknown 2022-0 4-12 00:00: 00 No Dose Unknown 2022-0 4-12 00:00: 00 No Dose Unknown 2022-0 4-12 00:00: 00 No Dose Unknown 2022-0 4-12 00:00: 00 No Dose Unknown 2022-0 4-12 00:00: 00 No Dose Unknown 2022-0 4-12 00:00: 00 No Dose Unknown 2022-0 4-12 00:00: 00 No Dose Unknown 2022-0 4-12 00:00: 00 No Dose Unknown 2022-0 4-12 00:00: 00 No Dose Unknown 2022-0 4-12 00:00: 00 No Dose Unknown 2022-0 4-12 00:00: 00 No Dose Unknown 2022-0 4-12 00:00: 00 No Dose Unknown 2-0 4-12 00:00: 00 No Dose Unknown 2-0 4-12 00:00: 00 No Dose Unknown 2-0 4-12 00:00: 00 No Dose Unknown 2-0 4-12 00:00: 00 No Dose Unknown 2-0 4-12 00:00: 00 No Dose Unknown 2-0 4-12 00:00: 00 No Dose Unknown 2-0 4-12 00:00: 00 No Dose Unknown 2-0 4-12 00:00: 00 No Dose Unknown 2-0 4-12 00:00: 00 No Dose Unknown 2-0 4-12 00:00: 00 No Dose Unknown 2-0 4-12 00:00: 00 No Dose Unknown 2021-0 4-12 00:00: 00 No Dose Unknown 2021-0 4-12 00:00: 00 No Dose Unknown 2-0 4-12 00:00: 00 No Dose Unknown 2021-0 4-12 00:00: 00 No Dose Unknown 2021-0 4-12 00:00: 00 No Dose Unknown 2021-0 4-12 00:00: 00 No Dose Unknown 2021-0 4-12 00:00: 00 No Advair Diskus 250 mcg-50 mcg/dose powder for inhalation 2021-0 4-12 00:00: 00 No 1mcg/do se amoxicillin 875 mg-potassiu m clavulanate 125 mg tablet 2021-0 4-12 00:00: 00 No 1mg prednisone 20 mg tablet 2021-0 4-12 00:00: 00 No mg Bromfed DM 2 mg-30 mg-10 mg/5 mL oral syrup 2021-0 4-12 00:00: 00 No 5mg/5 mL Dose Unknown 2021-0 4-12 00:00: 00 No Dose Unknown 2021-0 4-12 00:00: 00 No Dose Unknown 2021-0 4-12 00:00: 00 No Dose Unknown 2021-0 4-12 00:00: 00 No Dose Unknown 2021-0 4-12 00:00: 00 No Dose Unknown 2021-0 4-12 00:00: 00 No Advair Diskus 250 mcg-50 mcg/dose powder for inhalation 2021-0 4-12 00:00: 00 No 1mcg/do se amoxicillin 875 mg-potassiu m clavulanate 125 mg tablet 2022-0 4-12 00:00: 00 No 1mg prednisone 20 mg tablet 2022-0 4-12 00:00: 00 No mg Bromfed DM 2 mg-30 mg-10 mg/5 mL oral syrup 2022-0 4-12 00:00: 00 No 5mg/5 mL Dose Unknown 2022-0 4-12 00:00: 00 No Dose Unknown 2022-0 4-12 00:00: 00 No Dose Unknown 2022-0 4-12 00:00: 00 No Dose Unknown 2022-0 4-12 00:00: 00 No Dose Unknown 2022-0 4-12 00:00: 00 No Dose Unknown 2022-0 4-12 00:00: 00 No Dose Unknown 2022-0 4-12 00:00: 00 No Dose Unknown 2022-0 4-12 00:00: 00 No Dose Unknown 2022-0 4-12 00:00: 00 No Dose Unknown 2022-0 4-12 00:00: 00 No Dose Unknown 2022-0 4-12 00:00: 00 No Dose Unknown 2022-0 4-12 00:00: 00 No Dose Unknown 2022-0 4-12 00:00: 00 No Dose Unknown 2022-0 4-12 00:00: 00 No Dose Unknown 2022-0 4-12 00:00: 00 No Dose Unknown 2022-0 4-12 00:00: 00 No Dose Unknown 2022-0 4-12 00:00: 00 No Dose Unknown 2022-0 4-12 00:00: 00 No Dose Unknown 2022-0 4-12 00:00: 00 No Dose Unknown 2022-0 4-12 00:00: 00 No Dose Unknown 2022-0 4-12 00:00: 00 No Dose Unknown 2022-0 4-12 00:00: 00 No Dose Unknown 2022-0 4-12 00:00: 00 No Dose Unknown 2022-0 4-12 00:00: 00 No Dose Unknown 2022-0 4-12 00:00: 00 No Dose Unknown 2022-0 4-12 00:00: 00 No Dose Unknown 2022-0 4-12 00:00: 00 No Dose Unknown 2022-0 4-12 00:00: 00 No Dose Unknown 2022-0 4-12 00:00: 00 No Dose Unknown 2022-0 4-12 00:00: 00 No Dose Unknown 2022-0 4-12 00:00: 00 No Dose Unknown 2022-0 4-12 00:00: 00 No Dose Unknown 2022-0 4-12 00:00: 00 No Dose Unknown 2022-0 4-12 00:00: 00 No Dose Unknown 2022-0 4-12 00:00: 00 No Dose Unknown 2022-0 4-12 00:00: 00 No Dose Unknown 2022-0 4-12 00:00: 00 No Dose Unknown 2022-0 4-12 00:00: 00 No Dose Unknown 2022-0 4-12 00:00: 00 No Dose Unknown 2022-0 4-12 00:00: 00 No Dose Unknown 2022-0 4-12 00:00: 00 No Dose Unknown 2022-0 4-12 00:00: 00 No Dose Unknown 2022-0 4-12 00:00: 00 No Dose Unknown 2022-0 4-12 00:00: 00 No Dose Unknown 2022-0 4-12 00:00: 00 No Dose Unknown 2022-0 4-12 00:00: 00 No Dose Unknown 2022-0 4-12 00:00: 00 No Dose Unknown 2022-0 4-12 00:00: 00 No Dose Unknown 2022-0 4-12 00:00: 00 No Dose Unknown 2022-0 4-12 00:00: 00 No Dose Unknown 2022-0 4-12 00:00: 00 No Dose Unknown 2022-0 4-12 00:00: 00 No Dose Unknown 2022-0 4-12 00:00: 00 No Dose Unknown 2022-0 4-12 00:00: 00 No Dose Unknown 2022-0 4-12 00:00: 00 No Dose Unknown 2022-0 4-12 00:00: 00 No Dose Unknown 2022-0 4-12 00:00: 00 No Dose Unknown 2022-0 4-12 00:00: 00 No Dose Unknown 2022-0 4-12 00:00: 00 No Dose Unknown 2022-0 4-12 00:00: 00 No Dose Unknown 2022-0 4-12 00:00: 00 No Dose Unknown 2022-0 4-12 00:00: 00 No Advair Diskus 250 mcg-50 mcg/dose powder for inhalation 2021-0 4-12 00:00: 00 No 1mcg/do se amoxicillin 875 mg-potassiu m clavulanate 125 mg tablet 2021-0 4-12 00:00: 00 No 1mg prednisone 20 mg tablet 2021-0 4-12 00:00: 00 No mg Bromfed DM 2 mg-30 mg-10 mg/5 mL oral syrup 2021-0 4-12 00:00: 00 No 5mg/5 mL Dose Unknown 2022-0 4-12 00:00: 00 No Dose Unknown 2022-0 4-12 00:00: 00 No Dose Unknown 2022-0 4-12 00:00: 00 No Dose Unknown 2022-0 4-12 00:00: 00 No Dose Unknown 2022-0 4-12 00:00: 00 No Dose Unknown 2022-0 4-12 00:00: 00 No Dose Unknown 2022-0 4-12 00:00: 00 No Dose Unknown 2022-0 4-12 00:00: 00 No Dose Unknown 2022-0 4-12 00:00: 00 No Dose Unknown 2022-0 4-12 00:00: 00 No Dose Unknown 2022-0 4-12 00:00: 00 No Dose Unknown 2022-0 4-12 00:00: 00 No Dose Unknown 2022-0 4-12 00:00: 00 No Dose Unknown 2022-0 4-12 00:00: 00 No Dose Unknown 2022-0 4-12 00:00: 00 No Dose Unknown 2022-0 4-12 00:00: 00 No Dose Unknown 2022-0 4-12 00:00: 00 No Dose Unknown 2022-0 4-12 00:00: 00 No Dose Unknown 2022-0 4-12 00:00: 00 No Dose Unknown 2022-0 4-12 00:00: 00 No Dose Unknown 2022-0 4-12 00:00: 00 No Dose Unknown 2022-0 4-12 00:00: 00 No Dose Unknown 2022-0 4-12 00:00: 00 No Dose Unknown 2022-0 4-12 00:00: 00 No Dose Unknown 2022-0 4-12 00:00: 00 No Dose Unknown 2022-0 4-12 00:00: 00 No Dose Unknown 2022-0 4-12 00:00: 00 No Dose Unknown 2022-0 4-12 00:00: 00 No Dose Unknown 2022-0 4-12 00:00: 00 No Dose Unknown 2022-0 4-12 00:00: 00 No Dose Unknown 2022-0 4-12 00:00: 00 No Dose Unknown 2022-0 4-12 00:00: 00 No Dose Unknown 2022-0 4-12 00:00: 00 No Dose Unknown 2022-0 4-12 00:00: 00 No Dose Unknown 2022-0 4-12 00:00: 00 No Dose Unknown 2022-0 4-12 00:00: 00 No Dose Unknown 2022-0 4-12 00:00: 00 No Dose Unknown 2022-0 4-12 00:00: 00 No Dose Unknown 2022-0 4-12 00:00: 00 No Dose Unknown 2022-0 4-12 00:00: 00 No Dose Unknown 2022-0 4-12 00:00: 00 No Dose Unknown 2022-0 4-12 00:00: 00 No Dose Unknown 2022-0 4-12 00:00: 00 No Dose Unknown 2022-0 4-12 00:00: 00 No Dose Unknown 2022-0 4-12 00:00: 00 No Dose Unknown 2022-0 4-12 00:00: 00 No Dose Unknown 2022-0 4-12 00:00: 00 No Dose Unknown 2022-0 4-12 00:00: 00 No Dose Unknown 2022-0 4-12 00:00: 00 No Dose Unknown 2022-0 4-12 00:00: 00 No Dose Unknown 2022-0 4-12 00:00: 00 No Dose Unknown 2022-0 4-12 00:00: 00 No Dose Unknown 2022-0 4-12 00:00: 00 No Dose Unknown 2022-0 4-12 00:00: 00 No Dose Unknown 2022-0 4-12 00:00: 00 No Dose Unknown 2022-0 4-12 00:00: 00 No Dose Unknown 2022-0 4-12 00:00: 00 No Dose Unknown 2022-0 4-12 00:00: 00 No Dose Unknown 2021-0 4-12 00:00: 00 No Dose Unknown 2021-0 4-12 00:00: 00 No Dose Unknown 2021-0 4-12 00:00: 00 No Dose Unknown 2021-0 4-12 00:00: 00 No Dose Unknown 2021-0 4-12 00:00: 00 No Dose Unknown 2021-0 4-12 00:00: 00 No Dose Unknown 2021-0 4-12 00:00: 00 No Dose Unknown 2021-0 4-12 00:00: 00 No Dose Unknown 2021-0 4-12 00:00: 00 No ProAir HFA 90 mcg/actuati on aerosol inhaler 2021-0 2-11 00:00: 00 No 2mcg/ac tuation Dose Unknown 2021-0 2-11 00:00: 00 No Dose Unknown 0 2-11 00:00: 00 No ProAir HFA 90 mcg/actuati on aerosol inhaler 2021-0 2-11 00:00: 00 No 2mcg/ac tuation Dose Unknown 2021-0 2-11 00:00: 00 No Dose Unknown 2021-0 2-11 00:00: 00 No ProAir HFA 90 mcg/actuati on aerosol inhaler 2021-0 2-11 00:00: 00 No 2mcg/ac tuation Dose Unknown 2021-0 2-11 00:00: 00 No Dose Unknown 2021-0 2-11 00:00: 00 No ProAir HFA 90 mcg/actuati on aerosol inhaler 2021-0 2-11 00:00: 00 No 2mcg/ac tuation Dose Unknown 2021-0 2-11 00:00: 00 No Dose Unknown 2021-0 2-11 00:00: 00 No ibuprofen 800 mg tablet 1 0-18 00:00: 00 No 1mg ibuprofen 800 mg tablet 1 0-18 00:00: 00 No 1mg ibuprofen 800 mg tablet 1 0-18 00:00: 00 No 1mg ibuprofen 800 mg tablet 1 0-18 00:00: 00 No 1mg tramadol 50 mg tablet 2020-02 0-16 00:00: 00 No 1mg tramadol 50 mg tablet 2021-1 0-16 00:00: 00 No 1mg tramadol 50 mg tablet 2020-02 0-16 00:00: 00 No 1mg tramadol 50 mg tablet 2020-02 0-16 00:00: 00 No 1mg maalox/diph enhydrAMINE :lidocaine2 % viscous 1:1:1 Susp suspension 10-06 00:00: 00 Yes [id number] 10mL Take 10 mL by mouth as needed for Oral mucositis. [facility] maalox/diph enhydrAMINE :lidocaine2 % viscous 1:1:1 Susp suspension 10-06 00:00: 00 Yes [id number] 10mL Take 10 mL by mouth as needed for Oral mucositis. [facility] maalox/diph enhydrAMINE :lidocaine2 % viscous 1:1:1 Susp suspension 10-06 00:00: 00 Yes [id number] 10mL Take 10 mL by mouth as needed for Oral mucositis. [facility] maalox/diph enhydrAMINE :lidocaine2 % viscous 1:1:1 Susp suspension 10-06 00:00: 00 Yes [id number] 10mL Take 10 mL by mouth as needed for Oral mucositis. [facility] maalox/diph enhydrAMINE :lidocaine2 % viscous 1:1:1 Susp suspension 10-06 00:00: 00 Yes [id number] 10mL Take 10 mL by mouth as needed for Oral mucositis. [facility] maalox/diph enhydrAMINE :lidocaine2 % viscous 1:1:1 Susp suspension 10-06 00:00: 00 Yes [id number] 10mL Take 10 mL by mouth as needed for Oral mucositis. [facility] maalox/diph enhydrAMINE :lidocaine2 % viscous 1:1:1 Susp suspension 10-06 00:00: 00 Yes [id number] 10mL Take 10 mL by mouth as needed for Oral mucositis. [facility] maalox/diph enhydrAMINE :lidocaine2 % viscous 1:1:1 Susp suspension 10-06 00:00: 00 Yes [id number] 10mL Take 10 mL by mouth as needed for Oral mucositis. [facility] maalox/diph enhydrAMINE :lidocaine2 % viscous 1:1:1 Susp suspension 10-06 00:00: 00 Yes [id number] 10mL Take 10 mL by mouth as needed for Oral mucositis. [facility] maalox/diph enhydrAMINE :lidocaine2 % viscous 1:1:1 Susp suspension 10-06 00:00: 00 Yes [id number] 10mL Take 10 mL by mouth as needed for Oral mucositis. [facility] maalox/diph enhydrAMINE :lidocaine2 % viscous 1:1:1 Susp suspension 10-06 00:00: 00 Yes [id number] 10mL Take 10 mL by mouth as needed for Oral mucositis. [facility] maalox/diph enhydrAMINE :lidocaine2 % viscous 1:1:1 Susp suspension 10-06 00:00: 00 Yes [id number] 10mL Take 10 mL by mouth as needed for Oral mucositis. [facility] maalox/diph enhydrAMINE :lidocaine2 % viscous 1:1:1 Susp suspension 10-06 00:00: 00 Yes [id number] 10mL Take 10 mL by mouth as needed for Oral mucositis. [facility] maalox/diph enhydrAMINE :lidocaine2 % viscous 1:1:1 Susp suspension 10-06 00:00: 00 Yes [id number] 10mL Take 10 mL by mouth as needed for Oral mucositis. [facility] maalox/diph enhydrAMINE :lidocaine2 % viscous 1:1:1 Susp suspension 10-06 00:00: 00 Yes [id number] 10mL Take 10 mL by mouth as needed for Oral mucositis. [facility] maalox/diph enhydrAMINE :lidocaine2 % viscous 1:1:1 Susp suspension 10-06 00:00: 00 Yes [id number] 10mL Take 10 mL by mouth as needed for Oral mucositis. [facility] maalox/diph enhydrAMINE :lidocaine2 % viscous 1:1:1 Susp suspension 10-06 00:00: 00 Yes [id number] 10mL Take 10 mL by mouth as needed for Oral mucositis. [facility] maalox/diph enhydrAMINE :lidocaine2 % viscous 1:1:1 Susp suspension 10-06 00:00: 00 Yes [id number] 10mL Take 10 mL by mouth as needed for Oral mucositis. [facility] maalox/diph enhydrAMINE :lidocaine2 % viscous 1:1:1 Susp suspension 10-06 00:00: 00 Yes [id number] 10mL Take 10 mL by mouth as needed for Oral mucositis. [facility] maalox/diph enhydrAMINE :lidocaine2 % viscous 1:1:1 Susp suspension 10-06 00:00: 00 Yes [id number] 10mL Take 10 mL by mouth as needed for Oral mucositis. [facility] maalox/diph enhydrAMINE :lidocaine2 % viscous 1:1:1 Susp suspension 10-06 00:00: 00 Yes [id number] 10mL Take 10 mL by mouth as needed for Oral mucositis. [facility] maalox/diph enhydrAMINE :lidocaine2 % viscous 1:1:1 Susp suspension 10-06 00:00: 00 Yes [id number] 10mL Take 10 mL by mouth as needed for Oral mucositis. [facility] maalox/diph enhydrAMINE :lidocaine2 % viscous 1:1:1 Susp suspension 10-06 00:00: 00 Yes [id number] 10mL Take 10 mL by mouth as needed for Oral mucositis. [facility] maalox/diph enhydrAMINE :lidocaine2 % viscous 1:1:1 Susp suspension 10-06 00:00: 00 Yes [id number] 10mL Take 10 mL by mouth as needed for Oral mucositis. [facility] cephALEXin (KEFLEX) 500 mg capsule 10-05 00:00: 00 Yes [id number] 500mg Take 1 capsule by mouth 4 (four) times daily. [facility] ondansetron (ZOFRAN) 4 mg tablet 0 814 00:00: 00 Yes [id number] 4mg Take 1 tablet by mouth every 8 (eight) hours as needed for Nausea and Vomiting (N/V). [facility] cephALEXin (KEFLEX) 500 mg capsule 0 814 00:00: 00 Yes [id number] 500mg Take 1 capsule by mouth 4 (four) times daily. [facility] ondansetron (ZOFRAN) 4 mg tablet 0 14 00:00: 00 Yes [id number] 4mg Take 1 tablet by mouth every 8 (eight) hours as needed for Nausea and Vomiting (N/V). [facility] cephALEXin (KEFLEX) 500 mg capsule 0 14 00:00: 00 Yes [id number] 500mg Take 1 capsule by mouth 4 (four) times daily. [facility] ondansetron (ZOFRAN) 4 mg tablet 0 10-05 00:00: 00 Yes [id number] 4mg Take 1 tablet by mouth every 8 (eight) hours as needed for Nausea and Vomiting (N/V). [facility] cephALEXin (KEFLEX) 500 mg capsule 0 10-05 00:00: 00 Yes [id number] 500mg Take 1 capsule by mouth 4 (four) times daily. [facility] ondansetron (ZOFRAN) 4 mg tablet 0 14 00:00: 00 Yes [id number] 4mg Take 1 tablet by mouth every 8 (eight) hours as needed for Nausea and Vomiting (N/V). [facility] cephALEXin (KEFLEX) 500 mg capsule 0 14 00:00: 00 Yes [id number] 500mg Take 1 capsule by mouth 4 (four) times daily. [facility] ondansetron (ZOFRAN) 4 mg tablet 2020-0 814 00:00: 00 Yes [id number] 4mg Take 1 tablet by mouth every 8 (eight) hours as needed for Nausea and Vomiting (N/V). [facility] cephALEXin (KEFLEX) 500 mg capsule 2020-0 8-14 00:00: 00 Yes [id number] 500mg Take 1 capsule by mouth 4 (four) times daily. [facility] ondansetron (ZOFRAN) 4 mg tablet 0 8-14 00:00: 00 Yes [id number] 4mg Take 1 tablet by mouth every 8 (eight) hours as needed for Nausea and Vomiting (N/V). [facility] cephALEXin (KEFLEX) 500 mg capsule 2020-0 8-14 00:00: 00 Yes [id number] 500mg Take 1 capsule by mouth 4 (four) times daily. [facility] ondansetron (ZOFRAN) 4 mg tablet 2020-0 8-14 00:00: 00 Yes [id number] 4mg Take 1 tablet by mouth every 8 (eight) hours as needed for Nausea and Vomiting (N/V). [facility] cephALEXin (KEFLEX) 500 mg capsule 0 8-14 00:00: 00 Yes [id number] 500mg Take 1 capsule by mouth 4 (four) times daily. [facility] ondansetron (ZOFRAN) 4 mg tablet 2020-0 8-14 00:00: 00 Yes [id number] 4mg Take 1 tablet by mouth every 8 (eight) hours as needed for Nausea and Vomiting (N/V). [facility] cephALEXin (KEFLEX) 500 mg capsule 2020-0 8-14 00:00: 00 Yes [id number] 500mg Take 1 capsule by mouth 4 (four) times daily. [facility] ondansetron (ZOFRAN) 4 mg tablet 2020-0 8-14 00:00: 00 Yes [id number] 4mg Take 1 tablet by mouth every 8 (eight) hours as needed for Nausea and Vomiting (N/V). [facility] cephALEXin (KEFLEX) 500 mg capsule 2020-0 8-14 00:00: 00 Yes [id number] 500mg Take 1 capsule by mouth 4 (four) times daily. [facility] ondansetron (ZOFRAN) 4 mg tablet 2020-0 8-14 00:00: 00 Yes [id number] 4mg Take 1 tablet by mouth every 8 (eight) hours as needed for Nausea and Vomiting (N/V). [facility] cephALEXin (KEFLEX) 500 mg capsule 0 8-14 00:00: 00 Yes [id number] 500mg Take 1 capsule by mouth 4 (four) times daily. [facility] ondansetron (ZOFRAN) 4 mg tablet 2020-0 8-14 00:00: 00 Yes [id number] 4mg Take 1 tablet by mouth every 8 (eight) hours as needed for Nausea and Vomiting (N/V). [facility] cephALEXin (KEFLEX) 500 mg capsule 0 8-14 00:00: 00 Yes [id number] 500mg Take 1 capsule by mouth 4 (four) times daily. [facility] ondansetron (ZOFRAN) 4 mg tablet 0 8-14 00:00: 00 Yes [id number] 4mg Take 1 tablet by mouth every 8 (eight) hours as needed for Nausea and Vomiting (N/V). [facility] cephALEXin (KEFLEX) 500 mg capsule 0 8-14 00:00: 00 Yes [id number] 500mg Take 1 capsule by mouth 4 (four) times daily. [facility] ondansetron (ZOFRAN) 4 mg tablet 2020-0 8-14 00:00: 00 Yes [id number] 4mg Take 1 tablet by mouth every 8 (eight) hours as needed for Nausea and Vomiting (N/V). [facility] cephALEXin (KEFLEX) 500 mg capsule 2020-0 8-14 00:00: 00 Yes [id number] 500mg Take 1 capsule by mouth 4 (four) times daily. [facility] ondansetron (ZOFRAN) 4 mg tablet 2020-0 8-14 00:00: 00 Yes [id number] 4mg Take 1 tablet by mouth every 8 (eight) hours as needed for Nausea and Vomiting (N/V). [facility] cephALEXin (KEFLEX) 500 mg capsule 2020-0 8-14 00:00: 00 Yes [id number] 500mg Take 1 capsule by mouth 4 (four) times daily. [facility] ondansetron (ZOFRAN) 4 mg tablet 2020-0 8-14 00:00: 00 Yes [id number] 4mg Take 1 tablet by mouth every 8 (eight) hours as needed for Nausea and Vomiting (N/V). [facility] cephALEXin (KEFLEX) 500 mg capsule 0 814 00:00: 00 Yes [id number] 500mg Take 1 capsule by mouth 4 (four) times daily. [facility] ondansetron (ZOFRAN) 4 mg tablet 0 14 00:00: 00 Yes [id number] 4mg Take 1 tablet by mouth every 8 (eight) hours as needed for Nausea and Vomiting (N/V). [facility] cephALEXin (KEFLEX) 500 mg capsule 0 14 00:00: 00 Yes [id number] 500mg Take 1 capsule by mouth 4 (four) times daily. [facility] ondansetron (ZOFRAN) 4 mg tablet 10-05 00:00: 00 Yes [id number] 4mg Take 1 tablet by mouth every 8 (eight) hours as needed for Nausea and Vomiting (N/V). [facility] cephALEXin (KEFLEX) 500 mg capsule 0 14 00:00: 00 Yes [id number] 500mg Take 1 capsule by mouth 4 (four) times daily. [facility] ondansetron (ZOFRAN) 4 mg tablet 0 14 00:00: 00 Yes [id number] 4mg Take 1 tablet by mouth every 8 (eight) hours as needed for Nausea and Vomiting (N/V). [facility] cephALEXin (KEFLEX) 500 mg capsule 2020-0 14 00:00: 00 Yes [id number] 500mg Take 1 capsule by mouth 4 (four) times daily. [facility] ondansetron (ZOFRAN) 4 mg tablet 0 14 00:00: 00 Yes [id number] 4mg Take 1 tablet by mouth every 8 (eight) hours as needed for Nausea and Vomiting (N/V). [facility] cephALEXin (KEFLEX) 500 mg capsule 2020-0 8-14 00:00: 00 Yes [id number] 500mg Take 1 capsule by mouth 4 (four) times daily. [facility] ondansetron (ZOFRAN) 4 mg tablet 2020-0 8-14 00:00: 00 Yes [id number] 4mg Take 1 tablet by mouth every 8 (eight) hours as needed for Nausea and Vomiting (N/V). [facility] cephALEXin (KEFLEX) 500 mg capsule 0 8-14 00:00: 00 Yes [id number] 500mg Take 1 capsule by mouth 4 (four) times daily. [facility] ondansetron (ZOFRAN) 4 mg tablet 2020-0 8-14 00:00: 00 Yes [id number] 4mg Take 1 tablet by mouth every 8 (eight) hours as needed for Nausea and Vomiting (N/V). [facility] cephALEXin (KEFLEX) 500 mg capsule 0 8-14 00:00: 00 Yes [id number] 500mg Take 1 capsule by mouth 4 (four) times daily. [facility] ondansetron (ZOFRAN) 4 mg tablet 2020-0 8-14 00:00: 00 Yes [id number] 4mg Take 1 tablet by mouth every 8 (eight) hours as needed for Nausea and Vomiting (N/V). [facility] cephALEXin (KEFLEX) 500 mg capsule 0 8-14 00:00: 00 Yes [id number] 500mg Take 1 capsule by mouth 4 (four) times daily. [facility] ondansetron (ZOFRAN) 4 mg tablet 0 8-14 00:00: 00 Yes [id number] 4mg Take 1 tablet by mouth every 8 (eight) hours as needed for Nausea and Vomiting (N/V). [facility] cephALEXin (KEFLEX) 500 mg capsule 2020-0 8-14 00:00: 00 Yes [id number] 500mg Take 1 capsule by mouth 4 (four) times daily. [facility] ondansetron (ZOFRAN) 4 mg tablet 2020-0 8-14 00:00: 00 Yes [id number] 4mg Take 1 tablet by mouth every 8 (eight) hours as needed for Nausea and Vomiting (N/V). [facility] ofloxacin 0.3 % ear drops 2 00:00: 00 No 10% ofloxacin 0.3 % ear drops 2 00:00: 00 No 10% ofloxacin 0.3 % ear drops 2 00:00: 00 No 10% ofloxacin 0.3 % ear drops 2 00:00: 00 No 10% Ciprodex 0.3 %-0.1 % ear drops,suspe nsion 03-14 00:00: 00 No 1% mupirocin 2 % topical ointment 03-14 00:00: 00 No 1% Ciprodex 0.3 %-0.1 % ear drops,suspe nsion 03-14 00:00: 00 No 1% mupirocin 2 % topical ointment 03-14 00:00: 00 No 1% Bactrim DS 800 mg-160 mg tablet 03-14 00:00: 00 No 1mg Bactrim DS 800 mg-160 mg tablet 03-14 00:00: 00 No 1mg Ciprodex 0.3 %-0.1 % ear drops,suspe nsion 03-14 00:00: 00 No 1% mupirocin 2 % topical ointment 03-14 00:00: 00 No 1% Bactrim DS 800 mg-160 mg tablet 03-14 00:00: 00 No 1mg Ciprodex 0.3 %-0.1 % ear drops,suspe nsion 03-14 00:00: 00 No 1% mupirocin 2 % topical ointment 03-14 00:00: 00 No 1% Bactrim DS 800 mg-160 mg tablet 03-14 00:00: 00 No 1mg permethrin 5 % topical cream 03-05 00:00: 00 No 1% cetirizine 1 mg/mL oral solution - 00:00: 00 No 10mg/mL permethrin 5 % topical cream 03-05 00:00: 00 No 1% cetirizine 1 mg/mL oral solution 03-05 00:00: 00 No 10mg/mL permethrin 5 % topical cream 03-05 00:00: 00 No 1% cetirizine 1 mg/mL oral solution 03-05 00:00: 00 No 10mg/mL permethrin 5 % topical cream 03-05 00:00: 00 No 1% cetirizine 1 mg/mL oral solution 03-05 00:00: 00 No 10mg/mL ProAir HFA 90 mcg/actuati on aerosol inhaler 2019-02 00:00: 00 No 2mcg/ac tuation Symbicort 80 mcg-4.5 mcg/actuati on HFA aerosol inhaler 2019-02 00:00: 00 No 2mcg/ac tuation mupirocin 2 % topical ointment 2019-02 00:00: 00 No 1% albuterol sulfate 2.5 mg/3 mL (0.083 %) solution for nebulizatio n 2019-02 00:00: 00 No 3/3 mL (0.083 %) ProAir HFA 90 mcg/actuati on aerosol inhaler 2019-02 00:00: 00 No 2mcg/ac tuation Symbicort 80 mcg-4.5 mcg/actuati on HFA aerosol inhaler 2019-02 00:00: 00 No 2mcg/ac tuation mupirocin 2 % topical ointment 2019-02 00:00: 00 No 1% albuterol sulfate 2.5 mg/3 mL (0.083 %) solution for nebulizatio n 2019-02 00:00: 00 No 3/3 mL (0.083 %) ProAir HFA 90 mcg/actuati on aerosol inhaler 2019-02 00:00: 00 No 2mcg/ac tuation Symbicort 80 mcg-4.5 mcg/actuati on HFA aerosol inhaler 2019-02 00:00: 00 No 2mcg/ac tuation mupirocin 2 % topical ointment 2019-02 00:00: 00 No 1% albuterol sulfate 2.5 mg/3 mL (0.083 %) solution for nebulizatio n 2019-02 00:00: 00 No 3/3 mL (0.083 %) ProAir HFA 90 mcg/actuati on aerosol inhaler 2019-02 00:00: 00 No 2mcg/ac tuation Symbicort 80 mcg-4.5 mcg/actuati on HFA aerosol inhaler 2019-02 00:00: 00 No 2mcg/ac tuation mupirocin 2 % topical ointment 2019-02 00:00: 00 No 1% albuterol sulfate 2.5 mg/3 mL (0.083 %) solution for nebulizatio n 2019-02 00:00: 00 No 3/3 mL (0.083 %) Ciprodex 0.3 %-0.1 % ear drops,suspe anthony 2018-02 00:00: 00 No 4% amoxicillin 875 mg-potassiu m clavulanate 125 mg tablet 2018-02 00:00: 00 No 1mg Ciprodex 0.3 %-0.1 % ear drops,suspe anthony 2018-02 00:00: 00 No 4% amoxicillin 875 mg-potassiu m clavulanate 125 mg tablet 2018-02 00:00: 00 No 1mg Ciprodex 0.3 %-0.1 % ear drops,suspe anthony 2018-02 00:00: 00 No 4% amoxicillin 875 mg-potassiu m clavulanate 125 mg tablet 2018-02 00:00: 00 No 1mg Ciprodex 0.3 %-0.1 % ear drops,suspe nschago 2018-02 00:00: 00 No 4% amoxicillin 875 mg-potassiu m clavulanate 125 mg tablet 2018-02 00:00: 00 No 1mg levalbutero l HFA 45 mcg/actuati on aerosol inhaler 2018-02 00:00: 00 No 12mcg/a ctuatio n ipratropium 0.5 mg-albutero l 3 mg (2.5 mg base)/3 mL [facility] n [facility] 2018-02 00:00: 00 No 1mg base)/3 mL levalbutero l HFA 45 mcg/actuati on aerosol inhaler 2018-02 00:00: 00 No 12mcg/a ctuatio n ipratropium 0.5 mg-albutero l 3 mg (2.5 mg base)/3 mL [facility] n [facility] 2018-02 00:00: 00 No 1mg base)/3 mL levalbutero l HFA 45 mcg/actuati on aerosol inhaler 2018-02 00:00: 00 No 12mcg/a ctuatio n ipratropium 0.5 mg-albutero l 3 mg (2.5 mg base)/3 mL [facility] n [facility] 2018-02 00:00: 00 No 1mg base)/3 mL levalbutero l HFA 45 mcg/actuati on aerosol inhaler 2018-02 00:00: 00 No 12mcg/a ctuatio n ipratropium 0.5 mg-albutero l 3 mg (2.5 mg base)/3 mL [facility]atio n [facility] 2018-02 00:00: 00 No 1mg base)/3 mL Xopenex HFA 45 mcg/actuati on aerosol inhaler 2018-02 00:00: 00 No 12mcg/a ctuatio n ipratropium -albuterol 0.5 mg-3 mg(2.5 mg base)/3 mL [facility] n [facility] 2018-02 00:00: 00 No 1mg base)/3 mL amoxicillin 875 mg-potassiu m clavulanate 125 mg tablet 2018-02 00:00: 00 No 1mg Xopenex HFA 45 mcg/actuati on aerosol inhaler 2018-02 00:00: 00 No 12mcg/a ctuatio n ipratropium -albuterol 0.5 mg-3 mg(2.5 mg base)/3 mL [facility] n [facility] 2018-02 00:00: 00 No 1mg base)/3 mL amoxicillin 875 mg-potassiu m clavulanate 125 mg tablet 2018-02 00:00: 00 No 1mg Xopenex HFA 45 mcg/actuati on aerosol inhaler 2018-02 00:00: 00 No 12mcg/a ctuatio n ipratropium -albuterol 0.5 mg-3 mg(2.5 mg base)/3 mL nebulizatio n soln 2018-02 00:00: 00 No 1mg base)/3 mL amoxicillin 875 mg-potassiu m clavulanate 125 mg tablet 2018-02 00:00: 00 No 1mg Xopenex HFA 45 mcg/actuati on aerosol inhaler 2018-02 00:00: 00 No 12mcg/a ctuatio n ipratropium -albuterol 0.5 mg-3 mg(2.5 mg base)/3 mL nebulizatio n soln 2018-02 00:00: 00 No 1mg base)/3 mL amoxicillin 875 mg-potassiu m clavulanate 125 mg tablet 2018-02 00:00: 00 No 1mg Tylenol 325 mg tablet 2018-0217 00:00: 00 No 1mg ibuprofen 400 mg tablet 2018-02 00:00: 00 No 1mg Tylenol 325 mg tablet 2018-02 0 00:00: 00 No 1mg ibuprofen 400 mg tablet 2018-02 00:00: 00 No 1mg Tylenol 325 mg tablet 2018-0217 00:00: 00 No 1mg ibuprofen 400 mg tablet 2018-0217 00:00: 00 No 1mg Tylenol 325 mg tablet 2018-02 017 00:00: 00 No 1mg ibuprofen 400 mg tablet 2018-02 017 00:00: 00 No 1mg amoxicillin 875 mg-potassiu m clavulanate 125 mg tablet 2018-02 0 00:00: 00 No 1mg simethicone 125 mg chewable tablet 2018-02 003 00:00: 00 No 1mg ranitidine 150 mg capsule 2018-02 0-03 00:00: 00 No 1mg amoxicillin 875 mg-potassiu m clavulanate 125 mg tablet 2018-02 0 00:00: 00 No 1mg simethicone 125 mg chewable tablet 2018-02 0 00:00: 00 No 1mg ranitidine 150 mg capsule 2018-02 0 00:00: 00 No 1mg amoxicillin 875 mg-potassiu m clavulanate 125 mg tablet 2018-02 0 00:00: 00 No 1mg simethicone 125 mg chewable tablet 2018-02 0 00:00: 00 No 1mg ranitidine 150 mg capsule 2018-02 0 00:00: 00 No 1mg amoxicillin 875 mg-potassiu m clavulanate 125 mg tablet 2018-02 0 00:00: 00 No 1mg simethicone 125 mg chewable tablet 2018-02 0 00:00: 00 No 1mg ranitidine 150 mg capsule 2018-02 0 00:00: 00 No 1mg loratadine 10 mg tablet 10-18 00:00: 00 No 1mg amoxicillin 875 mg-potassiu m clavulanate 125 mg tablet 10-18 00:00: 00 No 1mg loratadine 10 mg tablet 10-18 00:00: 00 No 1mg amoxicillin 875 mg-potassiu m clavulanate 125 mg tablet 10-18 00:00: 00 No 1mg loratadine 10 mg tablet 10-18 00:00: 00 No 1mg amoxicillin 875 mg-potassiu m clavulanate 125 mg tablet 10-18 00:00: 00 No 1mg loratadine 10 mg tablet 10-18 00:00: 00 No 1mg amoxicillin 875 mg-potassiu m clavulanate 125 mg tablet 10-18 00:00: 00 No 1mg amoxicillin 500 mg capsule 09-22 00:00: 00 No 1mg amoxicillin 500 mg capsule 09-22 00:00: 00 No 1mg amoxicillin 500 mg capsule 09-22 00:00: 00 No 1mg amoxicillin 500 mg capsule 09-22 00:00: 00 No 1mg Vital Signs Vital Name Observation Time Observation Value Comments S emily Systolic blood pressure 2022-10-05 19:06:00 98 mm[Hg] [facility] Diastolic blood pressure 2022-10-05 19:06:00 63 mm[Hg] [facility] Heart rate 2022-10-05 19:06:00 99 /min Unive [facility] Respiratory rate 2022-10-05 19:06:00 18 /min [facility] Body height 2022-10-05 19:06:00 149.9 cm [facility] Body weight 2022-10-05 19:06:00 69.854 kg [facility] BMI 2022-10-05 19:06:00 31.10 kg/m2 [facility] Systolic blood pressure 2022-09-15 20:32:00 108 mm[Hg] [facility] Diastolic blood pressure 2022-09-15 20:32:00 68 mm[Hg] [facility] Heart rate 2022-09-15 20:32:00 85 /min [facility] 2022-09-15 20:32:00 149.9 cm [facility] Body weight 2022-09-15 20:32:00 69.899 kg [facility] BMI 2022-09-15 20:32:00 31.12 kg/m2 [facility] Oxygen saturation in Arterial blood by Pulse oximetry 2022-09-15 20:32:00 95 /min [facility] Systolic blood pressure 2022-07-13 19:05:00 106 mm[Hg] [facility] Diastolic blood pressure 2022-07-13 19:05:00 61 mm[Hg] [facility] Heart rate 2022-07-13 19:05:00 97 /min Unive [facility] Body temperature 2022-07-13 19:05:00 36.89 Nicki [facility] Respiratory rate 2022-07-13 19:05:00 17 /min [facility] Body height 2022-07-13 19:05:00 144.8 cm [facility] Body weight 2022-07-13 19:05:00 73.982 kg [facility] BMI 2022-07-13 19:05:00 35.29 kg/m2 [facility] Systolic blood pressure 2021-12-05 15:20:00 93 mm[Hg] [facility] Diastolic blood pressure 2021-12-05 15:20:00 65 mm[Hg] [facility] Heart rate 2021-12-05 15:20:00 72 /min Unive [facility] Body temperature 2021-12-05 15:20:00 36.28 Nicki [facility] Respiratory rate 2021-12-05 15:20:00 17 /min [facility] Body height 2021-12-05 15:20:00 144.8 cm [facility] Body weight 2021-12-05 15:20:00 74.39 kg [facility] BMI 2021-12-05 15:20:00 35.49 kg/m2 [facility] Body mass index (BMI) [Percentile] Per age and sex 2021-12-05 15:20:00 97.75 % [facility] Oxygen saturation in Arterial blood by Pulse oximetry 2021-12-05 15:20:00 95 /min room air [facility] Systolic blood pressure 2021-09-16 20:15:00 109 mm[Hg] [facility] Diastolic blood pressure 2021-09-16 20:15:00 75 mm[Hg] [facility] Heart rate 2021-09-16 20:15:00 89 /min [facility] Respiratory rate 2021-09-16 20:15:00 22 /min [facility] Body height 2021-09-16 20:15:00 144.8 cm [facility] Body weight 2021-09-16 20:15:00 72.485 kg [facility] BMI 2021-09-16 20:15:00 34.58 kg/m2 [facility] Body mass index (BMI) [Percentile] Per age and sex 2021-09-16 20:15:00 97.52 % [facility] Oxygen saturation in Arterial blood by Pulse oximetry 2021-09-16 20:15:00 96 /min [facility] BP Systolic 2021-06-11 13:29:00 103 mm[Hg] BP Diastolic 2021-06-11 13:29:00 67 mm[Hg] Weight Measured 2021-06-11 13:29:00 161.20 pounds Height Measured 2021-06-11 13:29:00 57.28 inches Body Temperature 2021-06-11 13:29:00 98.10 degrees Heart Rate 2021-06-11 13:29:00 69.00 /min Respiratory Rate 2021-06-11 13:29:00 21.00 /min BP Systolic 2021-01-13 15:49:00 108 mm[Hg] BP Diastolic 2021-01-13 15:49:00 71 mm[Hg] Weight Measured 2021-01-13 15:49:00 155.00 pounds Height Measured 2021-01-13 15:49:00 57.28 inches Body Temperature 2021-01-13 15:49:00 97.90 degrees Heart Rate 2021-01-13 15:49:00 75.00 /min Respiratory Rate 2021-01-13 15:49:00 BP Systolic 2020-12-09 16:06:00 106 mm[Hg] BP Diastolic 2020-12-09 16:06:00 70 mm[Hg] Weight Measured 2020-12-09 16:06:00 153.40 pounds Height Measured 2020-12-09 16:06:00 57.28 inches Body Temperature 2020-12-09 16:06:00 98.20 degrees Heart Rate 2020-12-09 16:06:00 77.00 /min Respiratory Rate 2020-12-09 16:06:00 BP Systolic 2020-12-07 13:25:00 BP Diastolic 2020-12-07 13:25:00 Weight Measured 2020-12-07 13:25:00 156.00 pounds Height Measured 2020-12-07 13:25:00 57.28 inches Body Temperature 2020-12-07 13:25:00 Heart Rate 2020-12-07 13:25:00 Respiratory Rate 2020-12-07 13:25:00 BP Systolic 2019-02-21 14:24:00 106 mm[Hg] BP Diastolic 2019-02-21 14:24:00 67 mm[Hg] Weight Measured 2019-02-21 14:24:00 146.80 pounds Height Measured 2019-02-21 14:24:00 57.28 inches Body Temperature 2019-02-21 14:24:00 98.60 degrees Heart Rate 2019-02-21 14:24:00 91.00 /min Respiratory Rate 2019-02-21 14:24:00 16.00 /min BP Systolic 2019-01-26 15:43:00 98 mm[Hg] BP Diastolic 2019-01-26 15:43:00 66 mm[Hg] Weight Measured 2019-01-26 15:43:00 151.00 pounds Height Measured 2019-01-26 15:43:00 59.00 inches Body Temperature 2019-01-26 15:43:00 99.00 degrees Heart Rate 2019-01-26 15:43:00 108.00 /min Respiratory Rate 2019-01-26 15:43:00 16.00 /min BP Systolic 2018-12-08 16:15:00 112 mm[Hg] BP Diastolic 2018-12-08 16:15:00 74 mm[Hg] Weight Measured 2018-12-08 16:15:00 146.40 pounds Height Measured 2018-12-08 16:15:00 59.00 inches Body Temperature 2018-12-08 16:15:00 98.20 degrees Heart Rate 2018-12-08 16:15:00 94.00 /min Respiratory Rate 2018-12-08 16:15:00 18.00 /min BP Systolic 2018-11-24 15:55:00 102 mm[Hg] BP Diastolic 2018-11-24 15:55:00 63 mm[Hg] Weight Measured 2018-11-24 15:55:00 144.60 pounds Height Measured 2018-11-24 15:55:00 59.00 inches Body Temperature 2018-11-24 15:55:00 98.50 degrees Heart Rate 2018-11-24 15:55:00 83.00 /min Respiratory Rate 2018-11-24 15:55:00 16.00 /min BP Systolic 2018-10-18 15:37:00 111 mm[Hg] BP Diastolic 2018-10-18 15:37:00 69 mm[Hg] Weight Measured 2018-10-18 15:37:00 144.00 pounds Height Measured 2018-10-18 15:37:00 59.00 inches Body Temperature 2018-10-18 15:37:00 98.60 degrees Heart Rate 2018-10-18 15:37:00 98.00 /min Respiratory Rate 2018-10-18 15:37:00 16.00 /min BP Systolic 2018-09-26 15:24:00 103 mm[Hg] BP Diastolic 2018-09-26 15:24:00 71 mm[Hg] Weight Measured 2018-09-26 15:24:00 141.00 pounds Height Measured 2018-09-26 15:24:00 59.00 inches Body Temperature 2018-09-26 15:24:00 98.20 degrees Heart Rate 2018-09-26 15:24:00 70.00 /min Respiratory Rate 2018-09-26 15:24:00 18.00 /min Procedures Procedure Date / Time Performed Performing Clinician Source ASSIGNMENT OF BENEFITS 2022-07-13 18:48:47 Docto r Unassigned, [place] [facility] REFERRAL- REQUEST/RESPONSE 2022-06-19 05:01:00 Doctor Unassigned, [place] [facility] COMPREHENSIVE METABOLIC$PANEL W/EGFR-Q 2022-04-17 22:27:00 Yue Leroy [facility] FERRITIN SERUM 2021-12-05 17:37:00 Dona Leiva uramila [facility] C-REACTIVE PROTEIN 2021-12-05 17:37:00 Ramila Leiva [facility] C4 COMPLEMENT 2021-12-05 17:37:00 Lesia Leiva [facility] SEDIMENTATION RATE 2021-12-05 17:37:00 Ramila Leiva [facility] G6PD SCREENING TEST 2021-12-05 17:37:00 Ramsey Leiva [facility] ANTI-NUCLEAR ANTIBODY SCREEN 2021-12-05 17:37:00 [facility] 2021-12-05 17:37:00 HatchHe Ashleyrique [facility] ANTI-CENTROMERE B 2021-12-05 17:37:[facility] 2021-12-05 [facility] ANTI-DOUBLE STRANDED DNA 2021-12-05 17:37:00 HatchTyshawn dawson [facility] HIV 1/2 AG-AB WITH REFLEX 2021-12-05 17:37:00 [facility] XR SACROILIAC JOINTS 3+ VW 2021-12-05 16:55:00 [facility] Plan of Care Planned Activity Planned Date Details Comments Source Goal Plan of Care Note [code = 32345-2] Goal Plan of Care Note [code = 50760-1] Goal Plan of Care Note [code = 83198-4] Goal Plan of Care Note [code = 06543-2] Goal Plan of Care Note [code = 67158-7] Goal Plan of Care Note [code = 08024-6] Goal Plan of Care Note [code = 01642-9] Goal Plan of Care Note [code = 32530-5] Goal Plan of Care Note [code = 95361-7] Goal Plan of Care Note [code = 25226-5] Goal Plan of Care Note [code = 57351-8] Goal Plan of Care Note [code = 39329-5] Goal Plan of Care Note [code = 57843-5] Goal Plan of Care Note [code = 51548-6] Goal Plan of Care Note [code = 91529-3] Goal Plan of Care Note [code = 71773-0] Goal Plan of Care Note [code = 37454-1] Goal Plan of Care Note [code = 69558-7] Goal Plan of Care Note [code = 29744-3] Goal Plan of Care Note [code = 71443-3] Goal Plan of Care Note [code = 47247-4] Goal Plan of Care Note [code = 17674-6] Goal Plan of Care Note [code = 29224-7] Goal Plan of Care Note [code = 53670-6] Goal Plan of Care Note [code = 75883-5] Goal Plan of Care Note [code = 18548-1] Goal Plan of Care Note [code = 38353-9] Goal Plan of Care Note [code = 19023-2] Goal Plan of Care Note [code = 52125-8] Goal Plan of Care Note [code = 44095-0] Goal Plan of Care Note [code = 32411-8] Goal Plan of Care Note [code = 69684-2] Goal Plan of Care Note [code = 84945-9] Goal Plan of Care Note [code = 31986-7] Goal Plan of Care Note [code = 51035-1] Goal Plan of Care Note [code = 29459-6] Goal Plan of Care Note [code = 89714-6] Goal Plan of Care Note [code = 85774-1] Goal Plan of Care Note [code = 69504-1] Goal Plan of Care Note [code = 24521-9] Goal Plan of Care Note [code = 56689-9] Goal Plan of Care Note [code = 70936-0] Goal Plan of Care Note [code = 88782-2] Goal Plan of Care Note [code = 47871-4] Goal Plan of Care Note [code = 15119-3] Goal Plan of Care Note [code = 35935-9] Goal Plan of Care Note [code = 71293-2] Goal Plan of Care Note [code = 30148-9] Goal Plan of Care Note [code = 94924-4] Goal Plan of Care Note [code = 87889-7] Goal Plan of Care Note [code = 66282-2] Goal Plan of Care Note [code = 06826-1] Goal Plan of Care Note [code = 97047-5] Goal Plan of Care Note [code = 65882-7] Goal Plan of Care Note [code = 85155-9] Goal Plan of Care Note [code = 16370-0] Goal Plan of Care Note [code = 44552-2] Goal Plan of Care Note [code = 89675-2] Goal Plan of Care Note [code = 30855-2] Goal Plan of Care Note [code = 92527-8] Goal Plan of Care Note [code = 77204-9] Goal Plan of Care Note [code = 56269-3] Goal Plan of Care Note [code = 52387-8] Goal Plan of Care Note [code = 29072-0] Goal Plan of Care Note [code = 76694-1] Goal Plan of Care Note [code = 37058-2] Goal Plan of Care Note [code = 73236-5] Goal Plan of Care Note [code = 06528-4] Goal Plan of Care Note [code = 05054-0] Goal Plan of Care Note [code = 14437-4] Goal Plan of Care Note [code = 46577-3] Goal Plan of Care Note [code = 19228-0] Goal Plan of Care Note [code = 39875-5] Goal Plan of Care Note [code = 21634-9] Goal Plan of Care Note [code = 80879-6] Goal Plan of Care Note [code = 96223-3] Goal Plan of Care Note [code = 30949-9] Goal Plan of Care Note [code = 66256-6] Goal Plan of Care Note [code = 26993-6] Goal Plan of Care Note [code = 28792-5] Goal Plan of Care Note [code = 48478-7] Goal Plan of Care Note [code = 63483-9] Goal Plan of Care Note [code = 13327-4] Goal Plan of Care Note [code = 06311-5] Goal Plan of Care Note [code = 76598-0] Goal Plan of Care Note [code = 41460-3] Goal Plan of Care Note [code = 26745-4] Goal Plan of Care Note [code = 76360-0] Goal Plan of Care Note [code = 41930-0] Goal Plan of Care Note [code = 65678-5] Goal Plan of Care Note [code = 32976-1] Goal Plan of Care Note [code = 81965-2] Goal Plan of Care Note [code = 40185-4] Encounters Start Date/Time End Date/Time Encounter Type Admission Type Attending Clinicians Care Facility Care Department Encounter ID Source 2023-02-06 13:14:20 2023-02-06 13:14:20 Outpatient [facility] [id number] Daniel Salinas 2022-12-26 08:59:47 2022-12-26 08:59:47 Outpatient [facility] [id number] Daniel Salinas 2022-12-25 17:10:27 2022-12-25 17:10:27 Outpatient [facility] [id number] Daniel Salinas 2022-12-23 16:49:08 2022-12-23 16:49:08 Outpatient [facility] [id number] Daniel Everett Brad 2022-12-11 18:53:33 2022-12-11 18:53:33 Outpatient [facility] [id number] Daniel Everett Cresbard 2022-10-13 15:51:44 2022-10-13 15:51:44 Outpatient [facility] [id number] Daniel Everett Brad 2022-10-05 15:00:00 2022-10-05 15:00:00 Office Visit Marcial Smith [facility] .2.840.114 350.1.13.10 4.2.7.2.686 [id number] [facility] 2022-10-05 15:00:00 2022-10-05 14:14:34 Outpatient R MARCIAL SMITH [facility] [id number] [facility] 2022-09-15 15:30:00 2022-09-15 16:21:49 Outpatient R [address]ABARI [facility] [facility] [id number] [facility] 2022-09-15 15:30:00 2022-09-15 16:21:49 Office Visit Jabari Cruz [facility] 1.2.840.114 350.1.13.10 4.2.7.2.686 [id number] [facility] 2022-07-13 14:00:00 2022-07-13 14:20:02 Outpatient R MARCIAL SMITH [facility] [id number] [facility] 2022-07-13 14:00:00 2022-07-13 14:20:02 Office Visit Marcial Smith [facility] 1.0.114 350.1.13.10 4.2.7.2.686 [id number] [facility] 2022-07-13 00:00:00 2022-07-13 00:00:00 Orders Only Doctor Unassigned, [place] [facility] 1.2840.114 350.1.13.10 4.2.7.2.686 [id number] [facility] 2022-07-13 00:00:00 2022-07-13 00:00:00 Letter (Out) Luis [facility] 1.840.114 350.1.13.10 4.2.7.2.686 [id number] [facility] 2022-07-07 15:41:23 2022-07-07 15:41:23 Outpatient [facility] [id number] Daniel Salinas 2022-07-02 14:30:00 2022-07-02 14:30:00 [facility] [id number] [facility] 2022-06-19 00:00:00 2022-06-19 00:00:00 Orders Only Doctor Unassigned, [place] [facility] 1.0.114 350.1.13.10 4.2.7.2.686 [id number] [facility] 2022-06-15 15:12:32 2022-06-15 15:12:32 Outpatient [facility] [id number] Daniel Marguerite Brad 2022-05-21 00:00:00 2022-05-21 00:00:00 Telephone Ramsey Carreon [facility] 1.840.114 350.1.13.10 4.2.7.2.686 [id number] [facility] 2022-05-18 14:53:12 2022-05-18 14:53:12 Outpatient [facility] [id number] Daniel Everett Brad 2022-05-08 11:30:00 2022-05-08 11:30:[address] [facility] [id number] [facility] 2022-04-17 00:00:00 2022-04-17 00:00:[address]rique [facility] 1.2.840.114 350.1.13.10 4.2.7.2.686 [id number] [facility] 2022-04-17 00:00:00 2022-04-17 00:00:00 [facility] 1.2840.114 350.1.13.10 4.2.7.2.686 [id number] [facility] 2022-03-02 00:00:00 2022-03-02 00:00:[address]rique [facility] 1.2.840.114 350.1.13.10 4.2.7.2.686 [id number] [facility] 2022-02-20 11:00:00 2022-02-20 11:00:[address] [facility] [id number] [facility] 2022-02-19 00:00:00 2022-02-19 00:00:00 [address] Yao [facility] 1.20.114 350.1.13.10 4.2.7.2.686 [id number] [facility] 2022-01-23 18:58:59 2022-01-23 18:58:59 Outpatient [facility] [id number] Daniel Marguerite Brad 2022-01-08 00:00:00 2022-01-08 00:00:00 Outpatient Visit [id number] 2021-12-05 11:26:04 2021-12-05 23:59:00 Hospital Encounter Yue Leroy [facility] 1.2.840.114 350.1.13.10 4.2.7.2.686 [id number] [facility] 2021-12-05 11:30:00 2021-12-05 11:45:00 Hoop Riveter Visit Pcp-Lab Yue Leroy [facility] 1.2.840.114 350.1.13.10 4.2.7.2.686 [id number] [facility] 2021-12-05 11:30:00 2021-12-05 11:30:00 [address] R [address]UE [address]Y [facility] [id number] [facility] 2021-12-05 10:00:00 2021-12-05 11:18:28 Office Visit Brando Yao [facility] 1.2.840.114 350.1.13.10 4.2.7.2.686 [id number] [facility] 2021-12-01 14:44:01 2021-12-01 14:44:01 Outpatient [facility] [id number] Daniel Salinas 2021-12-01 00:00:00 2021-12-01 00:00:00 Outpatient Visit [id number] 2021-10-14 00:00:00 2021-10-14 00:00:00 [facility] 1..840.114 350.1.13.10 4.2.7.2.686 [id number] [facility] 2021-09-16 15:00:00 2021-09-16 15:36:59 Outpatient R NANCY [facility]O [facility] [id number] [facility] 2021-09-16 15:00:00 2021-09-16 15:36:59 Office Visit Jabari Cruz [facility] 1..840.114 350.1.13.10 4.2.7.2.686 [id number] [facility] 2021-09-13 00:00:00 2021-09-13 00:00:00 Outpatient Visit [id number] 2021-09-04 10:00:00 2021-09-04 10:00:00 [address]UE [address]Y [facility] [id number] [facility] 2021-09-02 14:00:00 2021-09-02 14:15:00 Hoop Riveter Visit Lab, Ang - Db Nitish [facility] 1..840.114 350.1.13.10 4.2.7.2.686 [id number] [facility] 2021-09-02 13:30:00 2021-09-02 13:45:33 Outpatient R ALEJO [facility] [id number] [facility] 2021-09-02 13:30:00 2021-09-02 13:45:33 Office Visit N[facility] 1..840.114 350.1.13.10 4.2.7.2.686 [id number] [facility] 2021-08-30 00:00:00 2021-08-30 00:00:00 Outpatient Visit [id number] 2021-08-27 00:00:00 2021-08-27 00:00:00 Telephone EfrainAngjose g [facility] 1.2.840.114 350.1.13.10 4.2.7.2.686 [id number] [facility] 2021-08-15 00:00:00 2021-08-15 00:00:00 Letter (Out) Rupert Mabry [facility] 1..840.114 350.1.13.10 4.2.7.2.686 [id number] [facility] 2021-08-07 00:00:00 2021-08-07 00:00:00 Orders Only Doctor Unassigned, [place] [facility] 1.2.840.114 350.1.13.10 4.2.7.2.686 [id number] [facility] 2021-07-25 16:00:00 2021-07-25 16:00:[address] [facility] [id number] [facility] 2021-07-25 14:39:58 2021-07-25 15:15:[address] [facility] [id number] [facility] 2021-07-23 14:30:00 2021-07-23 15:02:[address] [facility] [id number] [facility] 2021-07-23 14:30:00 2021-07-23 15:02:07 Office Visit Edwin Denyn Kathleen [facility] 1.114 350.1.13.10 4.2.7.2.686 [id number] [facility] 2021-07-17 00:00:00 2021-07-17 00:00:00 Orders Only Doctor Unassigned, [place] [facility] 1..114 350.1.13.10 4.2.7.2.686 [id number] [facility] 2021-06-20 14:00:00 2021-06-20 14:18:08 Outpatient R [address]ABARI [facility] [facility] [id number] [facility] 2021-06-20 14:00:00 2021-06-20 14:18:08 Office Visit Jabari Cruz [facility] 1.114 350.1.13.10 4.2.7.2.686 [id number] [facility] 2021-06-20 14:00:00 2021-06-20 14:18:08 Outpatient R [facility]ABARI [facility] [id number] [facility] 2021-06-20 14:00:00 2021-06-20 14:18:08 Outpatient R [facility]ABARI [facility] [id number] [facility] 2021-06-20 00:00:00 2021-06-20 00:00:00 Orders Only Doctor Unassigned, [place] [facility] .114 350.1.13.10 4.2.7.2.686 [id number] [facility] 2021-06-20 00:00:00 2021-06-20 00:00:00 Letter (Out) Jabari Cruz [facility] 1..114 350.1.13.10 4.2.7.2.686 [id number] [facility] 2021-05-13 00:00:00 2021-05-13 00:00:00 Orders Only Doctor Unassigned, [place] [facility] 1.2.840.114 350.1.13.10 4.2.7.2.686 [id number] [facility] 2020-10-06 16:59:00 2020-10-06 20:21:00 Emergency KaushalcarolynbatshevaKatie [facility] 1.2.840.114 350.1.13.10 4.2.7.2.686 [id number] [facility] 2020-10-06 16:48:00 2020-10-06 16:48:[address] [facility] ERT [id number] [facility] 2020-10-05 01:24:00 2020-10-05 05:19:00 Emergency Dejon Malin S [facility] [id number] [facility] 2020-10-05 01:24:00 2020-10-05 01:24:00 Emergency X DEJON MALIN [facility] ERT [id number] [facility] Results Test Description Test Time Test Comments Results Result Co mments Source [id number] 06:41:16* Test Item Value Reference Range Interpretation Comme [facility] INSULIN (test code = 49279) 75 UIU/ML 2-21 H Note: Reference interval represents standard fasting reference range. COMPREHENSIVE METABOLIC [id number] 04:53:18* Test Item Value Reference Range Interpretation Comme [facility] GLUCOSE (test code = 2217) 86 MG/DL 70-99 BUN (test code = 2208) 13 MG/DL 6-20 CREATININE (test code = 2214) 0.67 MG/DL 0.50-1.10 eGFR (2020 CKD-EPI) (test code = 70821) 129 ML/MIN/1.73 >60 CALC BUN/CREAT (test code = 2235) 19 RATIO 6-28 SODIUM (test code = 223) 141 MEQ/L 133-146 POTASSIUM (test code = 2228) 4.7 MEQ/L 3.5-5.4 CHLORIDE (test code = 2215) 104 MEQ/L 95-107 CARBON DIOXIDE (test code = 2206) 23 MEQ/L 19-31 CALCIUM (test code = 220) 9.4 MG/DL 8.5-10.5 PROTEIN, TOTAL (test code = 222) 7.1 G/DL 6.1-8.3 ALBUMIN (test code = 220) 4.1 G/DL 3.5-5.2 CALC GLOBULIN (test code = 2240) 3.0 G/DL 2.1-3.7 CALC A/G RATIO (test code = 2233) 1.4 RATIO 1.0-2.6 BILIRUBIN, TOTAL (test code = 7) <0.2 MG/DL See_Comment [Automated me ssage] The system which generated this result transmitted reference range: <=1.2. The reference range was not used to interpret this result as normal/abnormal. ALKALINE PHOSPHATASE (test code = 2203) 63 U/L 41-120 AST (test code = 2218) 13 U/L 9-40 ALT (test code = 2219) 18 U/L 5-40 [facility] has impo rtant pathology staff changes effective 04/22/2022. New pathology staff will provide uninterrupted, excellent patient care and clinical consultation. See URL: [email or web address]. UNLESS OTHERWISE INDICATED, ALL TESTING PERFORMED AT [facility] [address] [place] [id number] SKIP LOADER: CHAD MORGAN M.D. CLIA NUMBER [id number] [place]. [id number] CBC W/AUTO DIFF WITH [id number] 04:28:28* Test Item Value Reference Range Interpretation Comme nts WBC (test code = 1001) 7.5 K/UL 3.5-11.0 RBC (test code = 1002) 4.43 M/UL 3.80-5.40 HEMOGLOBIN (test code = 1003) 13.7 G/DL 11.5-15.5 HEMATOCRIT (test code = 1004) 41.0 % 34.0-45.0 MCV (test code = 1005) 92.6 fL 80.0-99.0 MCH (test code = 1006) 30.9 PG 25.0-33.0 MCHC (test code = 1007) 33.4 G/DL 31.0-36.0 RDW (test code = 1038) 13.5 % 11.5-15.0 NEUTROPHILS (test code = 1008) 60.3 % LYMPHOCYTES (test code = 1010) 31.9 % MONOCYTES (test code = 1011) 5.9 % EOSINOPHILS (test code = 1012) 1.1 % BASOPHILS (test code = 1013) 0.7 % IMMATURE GRANULOCYTES (test code = 1036) 0.1 % NUCLEATED RBCS (test code = 1065) 0.0 /100 WBC'S See_Comment [Automated re3Da ge] The system which generated this result transmitted reference range: 0.0. The reference range was not used to interpret this result as normal/abnormal. PLATELET COUNT (test code = 1015) 472 K/UL 130-400 H ABSOLUTE NEUTROPHILS (test code = 1066) 4.53 K/UL 1.50-7.50 ABSOLUTE LYMPHOCYTES (test code = 1067) 2.39 K/UL 1.00-4.00 ABSOLUTE MONOCYTES (test code = 1068) 0.44 K/UL 0.20-1.00 ABSOLUTE EOSINOPHILS (test code = 1040) 0.08 K/UL 0.00-0.50 ABSOLUTE BASOPHILS (test code = 1069) 0.05 K/UL 0.00-0.20 ABS IMMATURE GRANULOCYTES (test code = 1020) 0.01 K/UL 0.00-0.10 ABS NUCLEATED RBCS (test code = 85498) 0.00 K/UL 0.00-0.11 HEMOGLOBIN [id number] 03:58:27* Test Item Value Reference Range Interpretation Comme nts HEMOGLOBIN A1c (test code = 64531) 5.4 % 4.2-5.6 COMPREHENSIVE METABOLIC$PANEL [id number]/[id number] 06:00:00* Test Item Value Reference Range Interpretation Comme nts GLUCOSE-Q (test code = 2345-7) 120 mg/dL 65-139 ? ? ? Non-fastin g reference interval UREA NITROGEN (BUN)-Q (test code = 3094-0) 15 mg/dL 7-20 CREATININE-Q (test code = 2160-0) 0.58 mg/dL 0.50-0.96 EGFR-Q (test code = 40735-0) 134 See_Comment The eGFR is base d on the CKD-EPI 2020 equation. To calculate the new eGFR from a previous Creatinine or Cystatin Cresult, go to [email or web address]/[email or web address] [email or web address]/[email or web address] lculator [Automated message] The system which generated this result transmitted reference range: > OR = 60 mL/min/1.73m2. The reference range was not used to interpret this result as normal/abnormal. BUN/CREATININE RATIO-Q (test code = 3097-3) NOT APPLICABLE See_Comment [Automated message] The system which generated this result transmitted reference range: 6 - 22 (calc). The reference range was not used to interpret this result as normal/abnormal. SODIUM-Q (test code = 2951-2) 137 mmol/L 135-146 POTASSIUM-Q (test code = 2823-3) 4.5 mmol/L 3.8-5.1 CHLORIDE-Q (test code = 5-0) 105 mmol/L 98-110 CARBON DIOXIDE-Q (test code = 2027-9) 26 mmol/L 20-32 CALCIUM-Q (test code = 29445-0) 9 mg/dL 8.9-10.4 PROTEIN, TOTAL-Q (test code = 2885-2) 7.2 g/dL 6.3-8.2 ALBUMIN-Q (test code = 1751-7) 4 g/dL 3.6-5.1 GLOBULIN-Q (test code = 13713-1) 3.2 See_Comment [Automated message] The system which generated this result transmitted reference range: 2.0 - 3.8 g/dL (calc). The reference range was not used to interpret this result as normal/abnormal. ALBUMIN/GLOBULIN RATIO-Q (test code = 1759-0) 1.3 See_Comment [Automated message] The system which generated this result transmitted reference range: 1.0 - 2.5 (calc). The reference range was not used to interpret this result as normal/abnormal. BILIRUBIN, TOTAL-Q (test code = 1975-2) 0.2 mg/dL 0.2-1.1 ALKALINE PHOSPHATASE-Q (test code = 6768-6) 69 U/L 36-128 AST-Q (test code = 1920-8) 9 U/L 12-32 L ALT-Q (test code = 1742-6) 18 U/L 5-32 ARI (test code = ARI) PERFORMED BY [employer] [place]; [address] [place] [id number]; MELVIN GRAHAM MD Lab Interpretation (test code = 48275-3) [facility] [id number] 18:00:51* Test Item Value Reference Range Interpretation Comme nts G6PD SCREEN (test code = 1367916271) Normal Normal ARI (test code = ARI) Normal G6PD activity. ?No evidence of G6PD deficiency. Lab Interpretation (test code = 44469-4) Normal [facility]-NUCLEAR ANTIBODY [id number] 19:26:18* Test Item Value Reference Range Interpretation Comme nts NANCY (test code = 0901802816) Positive Negative A ARI (test code = ARI) Negative: ?No Anti-Nuclear Antibodies detected by IFA. Positive: ?NANCY IFA screen performed with a 1:80 dilution in adults and a 1:40 dilution in pediatrics. ?A titer is performed and reported separately when the NANCY is "Positive" or when "Cytoplasmic staining is observed." Lab Interpretation (test code = 89075-2) [facility]normal [facility]2021-[facility]-07 20:18:09* Test Item Value Reference Range Interpretation Comme nts Anti-Adan (test code = 5589040812) Negative Negative ARI (test code = ARI) Positive - Antibod y detected.Negative - No antibody detected. Lab Interpretation (test code = 21200-7) Normal [facility]-[id number] 20:18:09* Test Item Value Reference Range Interpretation Comme nts Anti-Ribonucleoprotein (test code = 6564716580) Negative Negative ARI (test code = ARI) Positive - Antibod y detected.Negative - No antibody detected. Lab Interpretation (test code = 58361-2) Normal [facility]-CENTROMERE [id number] 20:18:09* Test Item Value Reference Range Interpretation Comme nts ANTI-CENTR (test code = 7775052853) Positive Negative A ARI (test code = ARI) Positive - Antibod y detected.Negative - No antibody detected. Lab Interpretation (test code = 44758-7) [facility]normal [facility][id number] 20:18:09* Test Item Value Reference Range Interpretation Comme nts ANTI-SCL70 (test code = 1064291383) Negative Negative ARI (test code = ARI) Positive - Antibod y detected.Negative - No antibody detected. Lab Interpretation (test code = 77057-0) [facility]SSA[facility]RO[facility]2021-12-07 20:18:09* Test Item Value Reference Range Interpretation Comme nts ANTI-SSA(RO) (test code = 1327571119) Negative Negative ARI (test code = ARI) Positive - Antibod y detected.Negative - No antibody detected. Lab Interpretation (test code = 22187-6) [facility]LA[facility]2021-12-07 20:18:09* Test Item Value Reference Range Interpretation Comme nts Anti-SSB(LA) (test code = 4397485209) Negative Negative ARI (test code = ARI) Positive - Antibod y detected.Negative - No antibody detected. Lab Interpretation (test code = 08868-9) [facility] [id number] 20:18:08* Test Item Value Reference Range Interpretation Comme nts ANTI-DSDNA (test code = 6485512454) See_Comment [Automated message] The system which generated this result transmitted reference range: 0.0 - 4.0 IU/mL. The reference range was not used to interpret this result as normal/abnormal. ARI (test code = ARI) Negative ? ?< or = 4 IU/mLPositive ? ? ?> or = 10 IU/mLIndetermin ate ?5-9 IU/mL Lab Interpretation (test code = 77945-6) [facility] [id number] 15:50:38* Test Item Value Reference Range Interpretation Comme nts C3 (test code = 3378279486) 135 mg/dL 86-184 Lab Interpretation (test cod e = 91793-2) [facility] [id number] 15:50:38* Test Item Value Reference Range Interpretation Comme nts C4 (test code = 4440739769) 38 mg/dL 20-59 Lab Interpretation (test cod e = 31852-7) Normal [facility]C-REACTIVE [id number] 15:50:38* Test Item Value Reference Range Interpretation Comme nts CRP (test code = 7698633616) 1.7 mg/dL See_Comment H [Automated re3Da [employer]] The system which generated this result transmitted reference range: <=0.8. The reference range was not used to interpret this result as normal/abnormal. Lab Interpretation (test code = 13154-5) [facility]normal [facility]HIV [facility]/2 AG-AB WITH [id number] 01:48:01* Test Item Value Reference Range Interpretation Comme nts HIV Semi-quantitative (test code = 89537-2) Negative Negative ARI (test code = ARI) Non-reactive for HIV-1 antigen and HIV-1/HIV-2 antibodies. ?No laboratory evidence of HIV infection. ?Repeat in 2-4 weeks if acute HIV infection is suspected. [facility] HospitalHCV [id number] 00:03:19* Test Item Value Reference Range Interpretation Comme nts HCV Ab (test code = 34573-9) Negative HCV Semi-Quantitative (test code = 63610-0) [facility] HospitalFERRITIN [id number] 23:49:36* Test Item Value Reference Range Interpretation Comme nts FERRITIN (test code = 6382701977) 56.8 ng/mL 6-137 ARI (test code = ARI) Biotin has been reported to cause a negative bias, interpret results relative to patient's use of biotin. Lab Interpretation (test code = 44119-7) Normal [facility] HospitalSEDIMENTATION [id number] 22:32:23* Test Item Value Reference Range Interpretation Comme nts ESR (test code = 40650-3) See_Comment H [Automated messa ge] The system which generated this result transmitted reference range: 2 - 30 mm/HR. The reference range was not used to interpret this result as normal/abnormal. Lab Interpretation (test code = 31789-0) [facility]normal [facility] HospitalH. PYLORI (BREATH)2021-07-19 12:58:30* Test Item Value Reference Range Interpretation Comme nts H. PYLORI (BREATH) (test code = 93025) NEGATIVE NEGATIVE UNLESS OTHER VILLAR INDICATED, ALL TESTING PERFORMED [facility] [employer] [address] [place] [address] SKIP LOADER: DAMION ANTHONY M.D. [place] NUMBER [id number] [facility] [place]. [id number] H. PYLORI (BREATH)2021-07-19 00:00:00* Test Item Value Reference Range Interpretation Comme nts H. PYLORI (BREATH) (test cod e = 00424) NEGATIVE H. PYLORI (BREATH)2021-07-19 00:00:00* Test Item Value Reference Range Interpretation Comme nts H. PYLORI (BREATH) (test cod e = 78561) NEGATIVE H. PYLORI (BREATH)2021-07-19 00:00:00* Test Item Value Reference Range Interpretation Comme nts H. PYLORI (BREATH) (test cod e = 45939) NEGATIVE H. PYLORI (BREATH)2021-07-19 00:00:00* Test Item Value Reference Range Interpretation Comme nts H. PYLORI (BREATH) (test cod e = 88978) NEGATIVE H. PYLORI (BREATH)2021-07-19 00:00:00* Test Item Value Reference Range Interpretation Comme nts H. PYLORI (BREATH) (test cod e = 10577) NEGATIVE H. PYLORI (BREATH)2021-07-19 00:00:00* Test Item Value Reference Range Interpretation Comme nts H. PYLORI (BREATH) (test cod e = 47168) NEGATIVE H. PYLORI (BREATH)2021-07-19 00:00:00* Test Item Value Reference Range Interpretation Comme nts H. PYLORI (BREATH) (test cod e = 92297) NEGATIVE SARS-CoV-2 (COVID-19) by RT-PCR (HIGH RISK)2020-02-21 00:00:00* Test Item Value Reference Range Interpretation Comme nts SARS-CoV-2 INTERPRETATION (t est code = 07463) POSITIVE SOURCE (test code = 67502) NOT SPECIFIED SARS-CoV-2 (COVID-19) by RT-PCR (HIGH RISK)2020-02-21 00:00:00* Test Item Value Reference Range Interpretation Comme nts SARS-CoV-2 INTERPRETATION (t est code = 30976) POSITIVE SOURCE (test code = 26777) NOT SPECIFIED SARS-CoV-2 (COVID-19) by RT-PCR (HIGH RISK)2020-02-21 00:00:00* Test Item Value Reference Range Interpretation Comme nts SARS-CoV-2 INTERPRETATION (t est code = 55237) POSITIVE SOURCE (test code = 31917) NOT SPECIFIED SARS-CoV-2 (COVID-19) by RT-PCR (HIGH RISK)2020-02-21 00:00:00* Test Item Value Reference Range Interpretation Comme nts SARS-CoV-2 INTERPRETATION (t est code = 68881) POSITIVE SOURCE (test code = 96745) NOT SPECIFIED SARS-CoV-2 (COVID-19) by RT-PCR (HIGH RISK)2020-02-21 00:00:00* Test Item Value Reference Range Interpretation Comme nts SARS-CoV-2 INTERPRETATION (t est code = 45844) POSITIVE SOURCE (test code = 49423) NOT SPECIFIED SARS-CoV-2 (COVID-19) by RT-PCR (HIGH RISK)2020-02-21 00:00:00* Test Item Value Reference Range Interpretation Comme nts SARS-CoV-2 INTERPRETATION (t est code = 63342) POSITIVE SOURCE (test code = 55212) NOT SPECIFIED SARS-CoV-2 (COVID-19) by RT-PCR (HIGH RISK)2020-02-21 00:00:00* Test Item Value Reference Range Interpretation Comme nts SARS-CoV-2 INTERPRETATION (t est code = 98252) POSITIVE SOURCE (test code = 68817) NOT SPECIFIED SARS-CoV-2 (COVID-19) by RT-PCR (HIGH RISK)2019-08-15 00:00:00* Test Item Value Reference Range Interpretation Comme nts SARS-CoV-2 INTERPRETATION (t est code = 74645) NEGATIVE SOURCE (test code = 33561) NOT SPECIFIED SARS-CoV-2 (COVID-19) by RT-PCR (HIGH RISK)2019-08-15 00:00:00* Test Item Value Reference Range Interpretation Comme nts SARS-CoV-2 INTERPRETATION (t est code = 85952) NEGATIVE SOURCE (test code = 08428) NOT SPECIFIED SARS-CoV-2 (COVID-19) by RT-PCR (HIGH RISK)2019-08-15 00:00:00* Test Item Value Reference Range Interpretation Comme nts SARS-CoV-2 INTERPRETATION (t est code = 11406) NEGATIVE SOURCE (test code = 41918) NOT SPECIFIED SARS-CoV-2 (COVID-19) by RT-PCR (HIGH RISK)2019-08-15 00:00:00* Test Item Value Reference Range Interpretation Comme nts SARS-CoV-2 INTERPRETATION (t est code = 22867) NEGATIVE SOURCE (test code = 56418) NOT SPECIFIED SARS-CoV-2 (COVID-19) by RT-PCR (HIGH RISK)2019-08-15 00:00:00* Test Item Value Reference Range Interpretation Comme nts SARS-CoV-2 INTERPRETATION (t est code = 17624) NEGATIVE SOURCE (test code = 23095) NOT SPECIFIED SARS-CoV-2 (COVID-19) by RT-PCR (HIGH RISK)2019-08-15 00:00:00* Test Item Value Reference Range Interpretation Comme nts SARS-CoV-2 INTERPRETATION (t est code = 24707) NEGATIVE SOURCE (test code = 51809) NOT SPECIFIED SARS-CoV-2 (COVID-19) by RT-PCR (HIGH RISK)2019-08-15 00:00:00* Test Item Value Reference Range Interpretation Comme nts SARS-CoV-2 INTERPRETATION (t est code = 87612) NEGATIVE SOURCE (test code = 79533) NOT SPECIFIED CULTURE, [id number] 00:00:00* Test Item Value Reference Range Interpretation Comme nts CULTURE, URINE (test code = 57618) SPECIMEN NUMBER: [id number] CULTURE, [id number] 00:00:00* Test Item Value Reference Range Interpretation Comme nts CULTURE, URINE (test code = 95095) SPECIMEN NUMBER: [id number] CULTURE, [id number] 00:00:00* Test Item Value Reference Range Interpretation Comme nts CULTURE, URINE (test code = 26643) SPECIMEN NUMBER: [id number] CULTURE, [id number] 00:00:00* Test Item Value Reference Range Interpretation Comme nts CULTURE, URINE (test code = 64282) SPECIMEN NUMBER: [id number] CULTURE, [id number] 00:00:00* Test Item Value Reference Range Interpretation Comme nts CULTURE, URINE (test code = 75528) SPECIMEN NUMBER: [id number] CULTURE, [id number] 00:00:00* Test Item Value Reference Range Interpretation Comme nts CULTURE, URINE (test code = 12953) SPECIMEN NUMBER: [id number] CULTURE, [id number] 00:00:00* Test Item Value Reference Range Interpretation Comme nts CULTURE, URINE (test code = 03597) SPECIMEN NUMBER: [id number] TISSUE [id number] 00:00:00* Test Item Value Reference Range Interpretation Comme nts A CLINICAL IMPRESSION (test code = ) DNR CLINICAL INFORMATION (test c ode = 33480-5) PATHOLOGIST (test code = 62002-1) A COMMENT (test code = 67139-3) DNR A SOURCE (test code = 95371-3) SCALP A PROCEDURE (test code = 98612-2) DNR A GROSS DESCRIPTION (test co de = 71085-7) A MICRO DESCRIPTION (test co de = 42677-3) A DIAGNOSIS (test code = 34899-6) TISSUE [id number] 00:00:00* Test Item Value Reference Range Interpretation Comme nts A CLINICAL IMPRESSION (test code = ) DNR CLINICAL INFORMATION (test c ode = 02426-7) PATHOLOGIST (test code = 40789-7) A COMMENT (test code = 67909-4) DNR A SOURCE (test code = 90641-0) SCALP A PROCEDURE (test code = 06132-8) DNR A GROSS DESCRIPTION (test co de = 57344-7) A MICRO DESCRIPTION (test co de = 27932-6) A DIAGNOSIS (test code = 39974-5) TISSUE [id number] 00:00:00* Test Item Value Reference Range Interpretation Comme nts A CLINICAL IMPRESSION (test code = ) DNR CLINICAL INFORMATION (test c ode = 49409-4) PATHOLOGIST (test code = 29172-7) A COMMENT (test code = 00003-6) DNR A SOURCE (test code = 87318-5) SCALP A PROCEDURE (test code = 29350-5) DNR A GROSS DESCRIPTION (test co de = 69428-3) A MICRO DESCRIPTION (test co de = 06230-0) A DIAGNOSIS (test code = 10037-8) TISSUE [id number] 00:00:00* Test Item Value Reference Range Interpretation Comme nts A CLINICAL IMPRESSION (test code = ) DNR CLINICAL INFORMATION (test c ode = 99258-2) PATHOLOGIST (test code = 35002-4) A COMMENT (test code = 59469-5) DNR A SOURCE (test code = 73883-7) SCALP A PROCEDURE (test code = 21978-4) DNR A GROSS DESCRIPTION (test co de = 55703-7) A MICRO DESCRIPTION (test co de = 70676-5) A DIAGNOSIS (test code = 71089-8) CBC W/AUTO [id number] 00:00:00* Test Item Value Reference Range Interpretation Comme nts WBC (test code = 1001) 7.7 K/UL RBC (test code = 1002) 4.55 M/UL HEMOGLOBIN (test code = 1003) 14.7 G/DL HEMATOCRIT (test code = 1004) 42.1 % MCV (test code = 1005) 92.5 fL MCH (test code = 1006) 32.3 PG MCHC (test code = 1007) 34.9 G/DL RDW (test code = 1038) 14.2 % NEUTROPHILS (test code = 1008) 58.7 % LYMPHOCYTES (test code = 1010) 33.9 % MONOCYTES (test code = 1011) 4.7 % EOSINOPHILS (test code = 1012) 2.2 % BASOPHILS (test code = 1013) 0.5 % PLATELET COUNT (test code = 1015) 389 K/UL CBC W/AUTO [id number] 00:00:00* Test Item Value Reference Range Interpretation Comme nts WBC (test code = 1001) 7.7 K/UL RBC (test code = 1002) 4.55 M/UL HEMOGLOBIN (test code = 1003) 14.7 G/DL HEMATOCRIT (test code = 1004) 42.1 % MCV (test code = 1005) 92.5 fL MCH (test code = 1006) 32.3 PG MCHC (test code = 1007) 34.9 G/DL RDW (test code = 1038) 14.2 % NEUTROPHILS (test code = 1008) 58.7 % LYMPHOCYTES (test code = 1010) 33.9 % MONOCYTES (test code = 1011) 4.7 % EOSINOPHILS (test code = 1012) 2.2 % BASOPHILS (test code = 1013) 0.5 % PLATELET COUNT (test code = 1015) 389 K/UL COMPREHENSIVE METABOLIC [id number] 00:00:00* Test Item Value Reference Range Interpretation Comme nts GLUCOSE (test code = 2217) 79 MG/DL BUN (test code = 2208) 15 MG/DL CREATININE (test code = 2214) 0.49 MG/DL eGFR AMER. (test code = 23305) (NOTE) ML/MIN/1.73 eGFR NON- AMER. (test code = 60884) NO CALC ML/MIN/1.73 CALC BUN/CREAT (test code = 2235) 31 RATIO SODIUM (test code = 2231) 140 MEQ/L POTASSIUM (test code = 2228) 5.2 MEQ/L CHLORIDE (test code = 2215) 102 MEQ/L CARBON DIOXIDE (test code = 2206) 19 MEQ/L CALCIUM (test code = 2209) 9.7 MG/DL PROTEIN, TOTAL (test code = 2229) 7.2 G/DL ALBUMIN (test code = 2201) 4.3 G/DL CALC GLOBULIN (test code = 2240) 2.9 G/DL CALC A/G RATIO (test code = 2234) 1.5 RATIO BILIRUBIN, TOTAL (test code = 2207) <0.2 MG/DL ALKALINE PHOSPHATASE (test code = 2204) 95 U/L AST (test code = 2218) 25 U/L ALT (test code = 2219) 17 U/L CBC W/AUTO [id number] 00:00:00* Test Item Value Reference Range Interpretation Comme nts WBC (test code = 1001) 7.7 K/UL RBC (test code = 1002) 4.55 M/UL HEMOGLOBIN (test code = 1003) 14.7 G/DL HEMATOCRIT (test code = 1004) 42.1 % MCV (test code = 1005) 92.5 fL MCH (test code = 1006) 32.3 PG MCHC (test code = 1007) 34.9 G/DL RDW (test code = 1038) 14.2 % NEUTROPHILS (test code = 1008) 58.7 % LYMPHOCYTES (test code = 1010) 33.9 % MONOCYTES (test code = 1011) 4.7 % EOSINOPHILS (test code = 1012) 2.2 % BASOPHILS (test code = 1013) 0.5 % PLATELET COUNT (test code = 1015) 389 K/UL CBC W/AUTO [id number] 00:00:00* Test Item Value Reference Range Interpretation Comme nts WBC (test code = 1001) 7.7 K/UL RBC (test code = 1002) 4.55 M/UL HEMOGLOBIN (test code = 1003) 14.7 G/DL HEMATOCRIT (test code = 1004) 42.1 % MCV (test code = 1005) 92.5 fL MCH (test code = 1006) 32.3 PG MCHC (test code = 1007) 34.9 G/DL RDW (test code = 1038) 14.2 % NEUTROPHILS (test code = 1008) 58.7 % LYMPHOCYTES (test code = 1010) 33.9 % MONOCYTES (test code = 1011) 4.7 % EOSINOPHILS (test code = 1012) 2.2 % BASOPHILS (test code = 1013) 0.5 % PLATELET COUNT (test code = 1015) 389 K/UL CBC W/AUTO [id number] 00:00:00* Test Item Value Reference Range Interpretation Comme nts WBC (test code = 1001) 7.7 K/UL RBC (test code = 1002) 4.55 M/UL HEMOGLOBIN (test code = 1003) 14.7 G/DL HEMATOCRIT (test code = 1004) 42.1 % MCV (test code = 1005) 92.5 fL MCH (test code = 1006) 32.3 PG MCHC (test code = 1007) 34.9 G/DL RDW (test code = 1038) 14.2 % NEUTROPHILS (test code = 1008) 58.7 % LYMPHOCYTES (test code = 1010) 33.9 % MONOCYTES (test code = 1011) 4.7 % EOSINOPHILS (test code = 1012) 2.2 % BASOPHILS (test code = 1013) 0.5 % PLATELET COUNT (test code = 1015) 389 K/UL COMPREHENSIVE METABOLIC [id number] 00:00:00* Test Item Value Reference Range Interpretation Comme nts GLUCOSE (test code = 2217) 79 MG/DL BUN (test code = 2208) 15 MG/DL CREATININE (test code = 2214) 0.49 MG/DL eGFR AMER. (test code = 75212) (NOTE) ML/MIN/1.73 eGFR NON- AMER. (test code = 52542) NO CALC ML/MIN/1.73 CALC BUN/CREAT (test code = 2235) 31 RATIO SODIUM (test code = 2231) 140 MEQ/L POTASSIUM (test code = 2228) 5.2 MEQ/L CHLORIDE (test code = 2215) 102 MEQ/L CARBON DIOXIDE (test code = 2206) 19 MEQ/L CALCIUM (test code = 2209) 9.7 MG/DL PROTEIN, TOTAL (test code = 2229) 7.2 G/DL ALBUMIN (test code = 2201) 4.3 G/DL CALC GLOBULIN (test code = 2240) 2.9 G/DL CALC A/G RATIO (test code = 2234) 1.5 RATIO BILIRUBIN, TOTAL (test code = 2207) <0.2 MG/DL ALKALINE PHOSPHATASE (test code = 2204) 95 U/L AST (test code = 2218) 25 U/L ALT (test code = 2219) 17 U/L COMPREHENSIVE METABOLIC [id number] 00:00:00* Test Item Value Reference Range Interpretation Comme nts GLUCOSE (test code = 2217) 79 MG/DL BUN (test code = 2208) 15 MG/DL CREATININE (test code = 2214) 0.49 MG/DL eGFR AMER. (test code = 29759) (NOTE) ML/MIN/1.73 eGFR NON- AMER. (test code = 03006) NO CALC ML/MIN/1.73 CALC BUN/CREAT (test code = 2235) 31 RATIO SODIUM (test code = 2231) 140 MEQ/L POTASSIUM (test code = 2228) 5.2 MEQ/L CHLORIDE (test code = 2215) 102 MEQ/L CARBON DIOXIDE (test code = 2206) 19 MEQ/L CALCIUM (test code = 2209) 9.7 MG/DL PROTEIN, TOTAL (test code = 2229) 7.2 G/DL ALBUMIN (test code = 2201) 4.3 G/DL CALC GLOBULIN (test code = 2240) 2.9 G/DL CALC A/G RATIO (test code = 2234) 1.5 RATIO BILIRUBIN, TOTAL (test code = 2207) <0.2 MG/DL ALKALINE PHOSPHATASE (test code = 2204) 95 U/L AST (test code = 2218) 25 U/L ALT (test code = 2219) 17 U/L CBC W/AUTO [id number] 00:00:00* Test Item Value Reference Range Interpretation Comme nts WBC (test code = 1001) 7.7 K/UL RBC (test code = 1002) 4.55 M/UL HEMOGLOBIN (test code = 1003) 14.7 G/DL HEMATOCRIT (test code = 1004) 42.1 % MCV (test code = 1005) 92.5 fL MCH (test code = 1006) 32.3 PG MCHC (test code = 1007) 34.9 G/DL RDW (test code = 1038) 14.2 % NEUTROPHILS (test code = 1008) 58.7 % LYMPHOCYTES (test code = 1010) 33.9 % MONOCYTES (test code = 1011) 4.7 % EOSINOPHILS (test code = 1012) 2.2 % BASOPHILS (test code = 1013) 0.5 % PLATELET COUNT (test code = 1015) 389 K/UL CBC W/AUTO [id number] 00:00:00* Test Item Value Reference Range Interpretation Comme nts WBC (test code = 1001) 7.7 K/UL RBC (test code = 1002) 4.55 M/UL HEMOGLOBIN (test code = 1003) 14.7 G/DL HEMATOCRIT (test code = 1004) 42.1 % MCV (test code = 1005) 92.5 fL MCH (test code = 1006) 32.3 PG MCHC (test code = 1007) 34.9 G/DL RDW (test code = 1038) 14.2 % NEUTROPHILS (test code = 1008) 58.7 % LYMPHOCYTES (test code = 1010) 33.9 % MONOCYTES (test code = 1011) 4.7 % EOSINOPHILS (test code = 1012) 2.2 % BASOPHILS (test code = 1013) 0.5 % PLATELET COUNT (test code = 1015) 389 K/UL CBC W/AUTO [id number] 00:00:00* Test Item Value Reference Range Interpretation Comme nts WBC (test code = 1001) 7.7 K/UL RBC (test code = 1002) 4.55 M/UL HEMOGLOBIN (test code = 1003) 14.7 G/DL HEMATOCRIT (test code = 1004) 42.1 % MCV (test code = 1005) 92.5 fL MCH (test code = 1006) 32.3 PG MCHC (test code = 1007) 34.9 G/DL RDW (test code = 1038) 14.2 % NEUTROPHILS (test code = 1008) 58.7 % LYMPHOCYTES (test code = 1010) 33.9 % MONOCYTES (test code = 1011) 4.7 % EOSINOPHILS (test code = 1012) 2.2 % BASOPHILS (test code = 1013) 0.5 % PLATELET COUNT (test code = 1015) 389 K/UL COMPREHENSIVE METABOLIC [id number] 00:00:00* Test Item Value Reference Range Interpretation Comme nts GLUCOSE (test code = 2217) 79 MG/DL BUN (test code = 2208) 15 MG/DL CREATININE (test code = 2214) 0.49 MG/DL eGFR AMER. (test code = 54014) (NOTE) ML/MIN/1.73 eGFR NON- AMER. (test code = 12610) NO CALC ML/MIN/1.73 CALC BUN/CREAT (test code = 2235) 31 RATIO SODIUM (test code = 2231) 140 MEQ/L POTASSIUM (test code = 2228) 5.2 MEQ/L CHLORIDE (test code = 2215) 102 MEQ/L CARBON DIOXIDE (test code = 2206) 19 MEQ/L CALCIUM (test code = 2209) 9.7 MG/DL PROTEIN, TOTAL (test code = 2229) 7.2 G/DL ALBUMIN (test code = 2201) 4.3 G/DL CALC GLOBULIN (test code = 2240) 2.9 G/DL CALC A/G RATIO (test code = 2234) 1.5 RATIO BILIRUBIN, TOTAL (test code = 2207) <0.2 MG/DL ALKALINE PHOSPHATASE (test code = 2204) 95 U/L AST (test code = 2218) 25 U/L ALT (test code = 2219) 17 U/L COMPREHENSIVE METABOLIC [id number] 00:00:00* Test Item Value Reference Range Interpretation Comme nts GLUCOSE (test code = 2217) 79 MG/DL BUN (test code = 2208) 15 MG/DL CREATININE (test code = 2214) 0.49 MG/DL eGFR AMER. (test code = 01096) (NOTE) ML/MIN/1.73 eGFR NON- AMER. (test code = 07344) NO CALC ML/MIN/1.73 CALC BUN/CREAT (test code = 2235) 31 RATIO SODIUM (test code = 2231) 140 MEQ/L POTASSIUM (test code = 2228) 5.2 MEQ/L CHLORIDE (test code = 2215) 102 MEQ/L CARBON DIOXIDE (test code = 2206) 19 MEQ/L CALCIUM (test code = 2209) 9.7 MG/DL PROTEIN, TOTAL (test code = 2229) 7.2 G/DL ALBUMIN (test code = 2201) 4.3 G/DL CALC GLOBULIN (test code = 2240) 2.9 G/DL CALC A/G RATIO (test code = 2234) 1.5 RATIO BILIRUBIN, TOTAL (test code = 2207) <0.2 MG/DL ALKALINE PHOSPHATASE (test code = 2204) 95 U/L AST (test code = 2218) 25 U/L ALT (test code = 2219) 17 U/L CBC W/AUTO [id number] 00:00:00* Test Item Value Reference Range Interpretation Comme nts WBC (test code = 1001) 7.7 K/UL RBC (test code = 1002) 4.55 M/UL HEMOGLOBIN (test code = 1003) 14.7 G/DL HEMATOCRIT (test code = 1004) 42.1 % MCV (test code = 1005) 92.5 fL MCH (test code = 1006) 32.3 PG MCHC (test code = 1007) 34.9 G/DL RDW (test code = 1038) 14.2 % NEUTROPHILS (test code = 1008) 58.7 % LYMPHOCYTES (test code = 1010) 33.9 % MONOCYTES (test code = 1011) 4.7 % EOSINOPHILS (test code = 1012) 2.2 % BASOPHILS (test code = 1013) 0.5 % PLATELET COUNT (test code = 1015) 389 K/UL CBC W/AUTO [id number] 00:00:00* Test Item Value Reference Range Interpretation Comme nts WBC (test code = 1001) 7.7 K/UL RBC (test code = 1002) 4.55 M/UL HEMOGLOBIN (test code = 1003) 14.7 G/DL HEMATOCRIT (test code = 1004) 42.1 % MCV (test code = 1005) 92.5 fL MCH (test code = 1006) 32.3 PG MCHC (test code = 1007) 34.9 G/DL RDW (test code = 1038) 14.2 % NEUTROPHILS (test code = 1008) 58.7 % LYMPHOCYTES (test code = 1010) 33.9 % MONOCYTES (test code = 1011) 4.7 % EOSINOPHILS (test code = 1012) 2.2 % BASOPHILS (test code = 1013) 0.5 % PLATELET COUNT (test code = 1015) 389 K/UL CBC W/AUTO [id number] 00:00:00* Test Item Value Reference Range Interpretation Comme nts WBC (test code = 1001) 7.7 K/UL RBC (test code = 1002) 4.55 M/UL HEMOGLOBIN (test code = 1003) 14.7 G/DL HEMATOCRIT (test code = 1004) 42.1 % MCV (test code = 1005) 92.5 fL MCH (test code = 1006) 32.3 PG MCHC (test code = 1007) 34.9 G/DL RDW (test code = 1038) 14.2 % NEUTROPHILS (test code = 1008) 58.7 % LYMPHOCYTES (test code = 1010) 33.9 % MONOCYTES (test code = 1011) 4.7 % EOSINOPHILS (test code = 1012) 2.2 % BASOPHILS (test code = 1013) 0.5 % PLATELET COUNT (test code = 1015) 389 K/UL COMPREHENSIVE METABOLIC [id number] 00:00:00* Test Item Value Reference Range Interpretation Comme nts GLUCOSE (test code = 2217) 79 MG/DL BUN (test code = 2208) 15 MG/DL CREATININE (test code = 2214) 0.49 MG/DL eGFR AMER. (test code = 45514) (NOTE) ML/MIN/1.73 eGFR NON- AMER. (test code = 28403) NO CALC ML/MIN/1.73 CALC BUN/CREAT (test code = 2235) 31 RATIO SODIUM (test code = 2231) 140 MEQ/L POTASSIUM (test code = 2228) 5.2 MEQ/L CHLORIDE (test code = 2215) 102 MEQ/L CARBON DIOXIDE (test code = 2206) 19 MEQ/L CALCIUM (test code = 2209) 9.7 MG/DL PROTEIN, TOTAL (test code = 2229) 7.2 G/DL ALBUMIN (test code = 2201) 4.3 G/DL CALC GLOBULIN (test code = 2240) 2.9 G/DL CALC A/G RATIO (test code = 2234) 1.5 RATIO BILIRUBIN, TOTAL (test code = 2207) <0.2 MG/DL ALKALINE PHOSPHATASE (test code = 2204) 95 U/L AST (test code = 2218) 25 U/L ALT (test code = 2219) 17 U/L COMPREHENSIVE METABOLIC [id number] 00:00:00* Test Item Value Reference Range Interpretation Comme nts GLUCOSE (test code = 2217) 79 MG/DL BUN (test code = 2208) 15 MG/DL CREATININE (test code = 2214) 0.49 MG/DL eGFR AMER. (test code = 41336) (NOTE) ML/MIN/1.73 eGFR NON- AMER. (test code = 31064) NO CALC ML/MIN/1.73 CALC BUN/CREAT (test code = 2235) 31 RATIO SODIUM (test code = 2231) 140 MEQ/L POTASSIUM (test code = 2228) 5.2 MEQ/L CHLORIDE (test code = 2215) 102 MEQ/L CARBON DIOXIDE (test code = 2206) 19 MEQ/L CALCIUM (test code = 2209) 9.7 MG/DL PROTEIN, TOTAL (test code = 2229) 7.2 G/DL ALBUMIN (test code = 2201) 4.3 G/DL CALC GLOBULIN (test code = 2240) 2.9 G/DL CALC A/G RATIO (test code = 2234) 1.5 RATIO BILIRUBIN, TOTAL (test code = 2207) <0.2 MG/DL ALKALINE PHOSPHATASE (test code = 2204) 95 U/L AST (test code = 2218) 25 U/L ALT (test code = 2219) 17 U/L Notes Date/Time Note Provider Source 2022-10-05 15:00:00 +[id number]:00:00 Addended by: MARCIAL SMITH NP on: 10/05/2022 03:44 PM Modules accepted: Orders [id number] [id number] for patient [id number] [id number] [id number]:44:211.2.840 .[id number]. [id number] [facility]
[2023-05-08] MEDS ORDERED: FAMOTIDINE 20 MG/2 ML VIAL IV ONE (00:50)
[2023-05-08] MEDS ORDERED: DIPHENHYDRAMINE 50 MG/ML VIAL ONE ×2 (00:50→08:45)
[2023-05-08] MEDS ORDERED: NA CHLORIDE 0.9% 1,000 ML ONE ×2 (00:50→03:52)
[2023-05-08] MEDS ORDERED: METHYLPREDNISOLONE 125 MG INJ ONE (00:50)
--- NOTE | 2023-05-08 02:22 | ER ---
Nurse's Notes [facility] Name: Christina Barroso Age: 17 yrs Sex: Female : 2005 Arrival Date: 05/08/2023 Time: 00:14 Bed 14 Private MD: Diagnosis: Angioedema Presentation: 05/07 00:22 Chief complaint: Parent and/or Guardian states: Mother states patient tongue swelled tl4 after eating fish and bread tonight. No relief with benadryl, montelukast, and zyrtec. Pt had a similar reaction last week after eating fish. Pt has noted rash to her forehead. Coronavirus screen: At this time, the client does not indicate any symptoms associated with coronavirus-19. Ebola Screen: No symptoms or risks identified at this time. Onset: The symptoms/episode began/occurred gradually, 5 hour(s) ago. 00:22 Method Of Arrival: Ambulatory tl4 00:25 Initial Sepsis Screen: Does the patient meet any 2 criteria? No. Patient's initial tl4 sepsis screen is negative. Does the patient have a suspected source of infection? No. Patient's initial sepsis screen is negative. Risk Assessment: Do you want to hurt yourself or someone else? Patient reports no desire to harm self or others. Onset of symptoms was May 07, 2023 at 17:30. 00:25 Acuity: FRANCA 3 tl4 00:57 Anaphylaxis evaluation, no signs or symptoms of anaphylaxis were noted. rv Triage Assessment: 00:27 General: Appears uncomfortable, Behavior is cooperative. Pain: Complains of pain in tl4 mouth. EENT: tongue is swollen. Neuro: No deficits noted. Cardiovascular: Capillary refill < 3 seconds Patient's skin is warm and dry. Respiratory: Denies cough, shortness of breath. GI: No deficits noted. No signs and/or symptoms were reported involving the gastrointestinal system. : No deficits noted. No signs and/or symptoms were reported regarding the genitourinary system. Derm: No deficits noted. No signs and/or symptoms reported regarding the dermatologic system. Musculoskeletal: No deficits noted. No signs and/or symptoms reported regarding the musculoskeletal system. Historical: - Allergies: 00:26 Pollen; tl4 00:26 Mold; tl4 - Home Meds: 00:26 montelukast oral [Active]; Zyrtec 10 mg Oral tablet 1 tab daily [Active]; tl4 - PMHx: 00:26 Asthma; Down Syndome; tl4 - PSHx: 00:26 Tonsillectomy; tl4 - Immunization history:: Adult Immunizations unknown. - Social history:: Smoking status: Patient denies any tobacco usage or history of. Screenin:55 [facility] ED Fall Risk Assessment (Adult) History of falling in the last 3 months, rv including since admission No falls in past 3 months (0 pts) Score/Fall Risk Level 0 - 2 = Low Risk Oriented to surroundings, Maintained a safe environment, Educated pt \T\ family on fall prevention, incl call for assistance when getting out of bed, Assessed \T\ reinforced patient's understanding of fall precautions. Abuse screen: Denies threats or abuse. Denies injuries from another. Nutritional screening: No deficits noted. Tuberculosis screening: No symptoms or risk factors identified. Assessment: 00:55 General: Appears uncomfortable, Behavior is calm, cooperative. Pain: Denies pain. rv Neuro: Level of Consciousness is awake, alert. Cardiovascular: Capillary refill < 3 seconds Patient's skin is warm and dry. Respiratory: Airway is patent Respiratory effort is even, unlabored, Respiratory pattern is regular, symmetrical, Breath sounds are clear bilaterally. GI: No signs and/or symptoms were reported involving the gastrointestinal system. EENT: tongue swelling. Vital Signs: 00:22 BP 143 / 86; Pulse 95; Resp 16; Temp 98.1(TE); Pulse Ox 100% on R/A; Weight 77.11 kg; tl4 Pain 6/10; 00:22 Pain Scale: Adult tl4 ED Course: 00:17 Patient arrived in ED. hb 00:26 Triage completed. tl4 00:28 Arm band placed on left wrist. tl4 00:36 Ramona Mims FNP-C is PHCP. kb 00:36 Piero Buck MD is Attending Physician. kb 00:55 Patient has correct armband on for positive identification. Client placed on continuous rv cardiac and pulse oximetry monitoring. NIBP monitoring applied. 00:55 No provider procedures requiring assistance completed. Inserted saline lock: 22 gauge rv in right hand, using aseptic technique. 02:21 Ga Whittington MD is Hospitalizing Provider. kb 02:25 Initial lab(s) drawn, by me, sent to lab. pf1 02:29 Basic Metabolic Panel Sent. pf1 02:29 CBC with Diff Sent. pf1 03:01 Clay Cleary, RN is Primary Nurse. rv 04:00 Patient admitted, IV remains in place. rv Administered Medications: 00:55 Drug: NS 0.9% IV 1000 ml IV at 1000 ml once Route: IV; Rate: 1000 ml; Site: right hand; rv 04:01 Follow up: IV Status: Completed infusion; IV Intake: 1000ml rv 00:55 Drug: MethylPrednisoLONE IVP 125 mg IVP once Route: IVP; Site: right hand; rv 04:00 Follow up: Response: No adverse reaction; No change in condition rv 00:55 Drug: Famotidine IVP 20 mg IVP once; dilute with 10 mL 0.9% NaCl; give over 2 minutes rv Route: IVP; Site: right hand; 04:00 Follow up: Response: No adverse reaction; No change in condition rv 00:55 Drug: diphenhydrAMINE IVP 25 mg IVP once Route: IVP; Site: right hand; rv 04:00 Follow up: Response: No adverse reaction; No change in condition rv Medication: 00:55 VIS not applicable for this client. rv Intake: 04:01 IV: 1000ml; Total: 1000ml. rv Outcome: 02:21 Decision to Hospitalize by Provider. kb 03:59 Admitted to ICU accompanied by nurse, via wheelchair, room icu 2, with chart, Report rv called to agriculture extension specialist 03:59 Condition: good 03:59 Instructed on the need for admit, 04:01 Patient left the ED. rv Signatures: Ramona Mims, OUTSIDE DELIVERER-C OUTSIDE DELIVERER-Ckb Funmilayo Ahsraf RN RN Clay Cleary, RN RN rv Marietta Tarango, SHIRIN CARPIO pf1 Mikey Jade RN RN tl4 Corrections: (The following items were deleted from the chart) 00:26 00:22 Anaphylaxis evaluation, the patient reports or I have noted the following tl4 symptoms which indicate a significant risk of anaphylaxis: tl4
--- NOTE | 2023-05-08 02:22 | EDPHYS ---
Physician Documentation [facility] Name: Christina Barroso Age: 17 yrs Sex: Female : 2005 Arrival Date: 05/08/2023 Time: 00:14 Bed 14 Private MD: ED Physician Piero Buck HPI: 05/07 02:16 This 17 yrs old Female presents to ER via Ambulatory with complaints of kb Swelling Of Tongue, Allergic Reaction. 02:16 Patient is a 17-year-old female who was brought in by her mother for swelling of the kb tongue after eating fish. States she gave Benadryl and Zyrtec prior to arrival but swelling has not gotten any better. Reports this happened 1 other time last week after eating fish as well but the swelling got better after treatment.. Historical: - Allergies: 00:26 Pollen; tl4 00:26 Mold; tl4 - Home Meds: 00:26 montelukast oral [Active]; Zyrtec 10 mg Oral tablet 1 tab daily [Active]; tl4 - PMHx: 00:26 Asthma; Down Syndome; tl4 - PSHx: 00:26 Tonsillectomy; tl4 - Immunization history:: Adult Immunizations unknown. - Social history:: Smoking status: Patient denies any tobacco usage or history of. ROS: 01:51 Constitutional: As per HPI kb Exam: 01:51 Constitutional: This is a well developed, well nourished patient who is awake, alert, kb and in no acute distress. Head/Face: Normocephalic, atraumatic. Cardiovascular: Regular rate Respiratory: Respirations even and unlabored. No increased work of breathing. Talking in full sentences Skin: Warm, dry with normal turgor. Normal color. MS/ Extremity: Pulses equal, no cyanosis. Neurovascular intact. Full, normal range of motion. Neuro: Awake and alert, GCS 15, oriented to person, place, time, and situation. Moves all extremities. Normal gait. 01:51 ENT: Mouth: Tongue: is swollen, Vital Signs: 00:22 BP 143 / 86; Pulse 95; Resp 16; Temp 98.1(TE); Pulse Ox 100% on R/A; Weight 77.11 kg; tl4 Pain 6/10; 00:22 Pain Scale: Adult tl4 MDM: 00:36 Patient medically screened. kb 01:55 Data reviewed: vital signs, nurses notes. kb 02:19 Differential diagnosis: anaphylaxis, angioedema. Consideration of Admission/Observation kb Patient was admitted/placed on observation. Escalation of care including admission/observation considered. Management of patient was discussed with the following: Hospitalist: Dr. Gloria accepts patient for admission. Dr. Buck recommends admission. Historians other than the Patient: Parent: Mother. Counseling: I had a detailed discussion with the patient and/or guardian regarding the historical points, exam findings, and any diagnostic results supporting the discharge/admit diagnosis, the need for further work-up and treatment in the hospital. 05/07 02:20 Order name: CBC with Diff kb 05/07 02:20 Order name: Basic Metabolic Panel kb 05/07 00:39 Order name: IV Start; Complete Time: 00:55 kb Administered Medications: 00:55 Drug: NS 0.9% IV 1000 ml IV at 1000 ml once Route: IV; Rate: 1000 ml; Site: right hand; rv 04:01 Follow up: IV Status: Completed infusion; IV Intake: 1000ml rv 00:55 Drug: MethylPrednisoLONE IVP 125 mg IVP once Route: IVP; Site: right hand; rv 04:00 Follow up: Response: No adverse reaction; No change in condition rv 00:55 Drug: Famotidine IVP 20 mg IVP once; dilute with 10 mL 0.9% NaCl; give over 2 minutes rv Route: IVP; Site: right hand; 04:00 Follow up: Response: No adverse reaction; No change in condition rv 00:55 Drug: diphenhydrAMINE IVP 25 mg IVP once Route: IVP; Site: right hand; rv 04:00 Follow up: Response: No adverse reaction; No change in condition rv Disposition: 05:22 Co-signature as Attending Physician, Piero Buck MD I agree with the assessment sp4 and plan of care. I reviewed the patient's care provided by the Advanced Practice Provider and agree with the diagnosis and treatment plan. Disposition Summary: 05/08/23 02:21 Hospitalization Ordered Notes: Hospitalization Status: Observation kb Provider: Ga Whittington Condition: Stable kb Problem: new kb Symptoms: are unchanged kb Bed/Room Type: Standard Location: Intensive Care Unit(05/08/23 03:37) rv1 Room Assignment: 4-(05/08/23 03:37) rv1 Diagnosis - Angioedema kb Forms: - Medication Reconciliation Form kb - SBAR form kb - Leadership Thank You Letter kb Signatures: Dispatcher [employer] EDRamona Flaherty, Tia Shukla, RN RN cg Clay Cleary, RN RN Sarah Henderson rv1 Piero Buck MD MD sp4 Mikey Jade RN RN tl4 Corrections: (The following items were deleted from the chart) 03:27 02:21 Telemetry/MedSurg (observation) kb cg 03:27 02:21 kb cg 03:35 03:27 [facility] ER HOLD cg cg 03:35 03:27 ERHOLD- cg cg 03:37 03:35 Telemetry/MedSurg (observation) cg rv1 03:37 03:35 cg rv1
[2023-05-08 02:43] LABS: Absolute Basophils 0.1 K/uL (0-0.5); Absolute Eosinophils 0.1 K/uL (0-0.5); Absolute Lymphocytes (CBC) 1.6 K/uL (0.7-4.9); Absolute Monocytes 0.3 K/uL (0.1-1.3); Absolute Neutrophil 13.4 K/uL (1.8-8.0); Basophils % 0.5 % (0-1.3); Eosinophils % 0.5 % (0-4.4); Hematocrit 40.1 % (36.0-45.0); Hemoglobin 13.5 g/dL (12.0-15.0); Lymphocytes % 10.1 % (15.3-44.8); MCH 31.7 pg (27.0-35.0); MCHC 33.5 g/dL (32.0-36.0); MCV 94.4 fL (80-100); MPV 6.4 fL (7.6-11.3); Monocytes % 1.9 % (3.3-12.3); Nucleated Red Blood Cells % 0.1 % (0-0); Platelets 429 thou/uL (152-406); RBC Red Blood Cell Count 4.25 M/uL (3.86-4.86); Red Cell Distribution Width 14.5 % (12.1-15.2)
--- NOTE | 2023-05-08 03:13 | P.HP ---
Certification for Inpatient With expected LOS: >2 Midnights Practitioner: I am a practitioner with admitting privileges, knowledge of patient current condition, hospital course, and medical plan of care. Services: Services provided to patient in accordance with Admission requirements found in Title 42 Section 412.3 of the Code of Federal Regulations Patient History Date of Service: 05/08/23 Reason for admission: Swollen tongue History of Present Illness: Patient is 17 years of age mother present at the bedside history of Down syndrome presenting with 2-week history of intermittently swallowing has become worse today he has a slightly enlarged tongue no prior history before patient does take montelukast has some fish denies any shortness of breath apparently patient had this reaction after eating fish before Allergies No Known Drug Allergies Allergy (Unverified 06/17/14 02:35) Unknown - Past Medical/Surgical History -: Down syndrome - Social History Smoking Status: Never smoker Review of Systems 10-point ROS is otherwise unremarkable Integumentary: Other (Has some generalized pruritus) Physical Examination - Vital Signs Temperature: 98 F Blood Pressure: 143/86 Pulse: 95 Respirations: 16 Pulse Ox (%): 100 - Physical Exam General: Alert, Oriented x2, Cooperative HEENT: Other (Tongue is very swollen protruding about 3 to 4 cm from the lips and is fissured) Respiratory: Clear to auscultation bilaterally Cardiovascular: No edema, Regular rate/rhythm, Normal S1 S2 Gastrointestinal: Normal bowel sounds, Soft and benign Musculoskeletal: No clubbing, No swelling Integumentary: No rashes, No breakdown - Studies Laboratory Data (last 24 hrs) 05/08/23 05/08/23 02:25 02:25 WBC 15.40 H Hgb 13.5 Hct 40.1 Plt Count 429 H Sodium 139 Potassium 4.0 BUN 8 Creatinine 0.71 Glucose 118 H Assessment and Plan - Problems (Diagnosis) (1) Swollen tongue Current Visit: Yes Status: Acute Plan: Patient is 17 years of age has been complaining of intermittent swelling of the tongue for the past 2 weeks apparently according to the mother may be triggered by eating fish no prior history before patient has a very enlarged tongue which is fissured treated with IV steroids and Benadryl it could be an urticarial reaction to montelukast should avoid admitted to ICU for observation white count is mildly elevated - Advance Directives Does patient have a Living Will: No Does patient have a Durable POA for Healthcare: No
[2023-05-08 03:47] VITALS: BMI 51.8
[2023-05-08] MEDS: NA CHLORIDE 0.9% 1,000 ML IV SCH (04:00)
[2023-05-08 04:43] VITALS: O2SAT 100
[2023-05-08] MEDS ORDERED: METHYLPREDNISOLONE 40 MG INJ ONE ×2 (06:50→11:39)
[2023-05-08] MEDS: METHYLPREDNISOLONE 40 MG INJ IV SCH (06:53)
[2023-05-08] MEDS: DIPHENHYDRAMINE 50 MG/ML VIAL IV PRN (08:59)
--- NOTE | 2023-05-08 10:09 | P.PN ---
Date of Service: 05/08/23 Subjective: Feels tongue swelling slightly improved today fissured tongue seen on exam. Reports taking citric sour gummy vitamins otherwise no new / worsening problems patent airway afebrile ROS: 10 point ROS as noted above, otherwise negative Physical Exam: GEN: Alert, oriented, NAD HEENT: swollen tongue protruding from lips, +cracked/fissured tongue. no other oral lesions CV: Sinus Tachycardia, no edema Pulm: Nonlabored respirations on 2L NC, clear bilaterally ABD: soft, nontender, nondistended Neuro: Normal speech, normal affect Problem List: Angioedema of tongue, concerning for allergic reaction Fissured Tongue Down's Syndrome Hx of asthma Patient reports tongue swelling after eating fish prior to admisison. Had a similar reaction ~1 week ago after eating fish. Reports swelling improved after treatment last time with benadryl / zyretc. however didn't feel much improvement after medication this episode so she came to ED given IV solu-medrol, IV benadryl and IV famotidine in ED continue IV solu-medrol and IV benadryl NPO / only sips of water for now. anticipate advance diet next 12-24 hours if tolerating sips and edema improves Monitor closely for worsening edema / erythema / aspiration continue supportive care confirm home meds, restart as appropriate VTE: Code: Full Dispo: Home, ~1 day pending further improvement of angioedema, tolerates diet
[2023-05-08 16:26] VITALS: BP 108/79; TEMP 96.7
[2023-05-08] MEDS ORDERED: ENOXAPARIN 40 MG/0.4 ML SQ SCH (17:00)
--- NOTE | 2023-05-09 06:43 | P.DS ---
Admission Date: 05/08/23 Discharge Date: 05/08/23 Disposition: ROUTINE DISCHARGE Discharge Condition: GOOD Reason for Admission: Swollen tongue Brief History of Present Illness: 17yo F, PMH: Down syndrome, hx of asthma Patient presented to the ED with worsening tongue swelling. She has a slightly enlarged tongue. no prior history before patient does take montelukast has some fish denies any shortness of breath apparently patient had this reaction after eating fish before Hospital Course: Problem List: Angioedema of tongue, suspected allergic reaction Fissured Tongue Down's Syndrome Hx of asthma Patient presented with swelling of tongue after eating fish. Patient reported she had a similar episode ~1 week ago after eating fish from the same place, raising concern for an allergic reaction to either the fish or whatever it was prepared with. Patient was given IV steroids, IV benadryl and had some improvement of her symptoms, with resolution of her swelling. Patient's mother also reported patient has been complaining of some rawness of the tongue for the last week - with pain when drinking lemonade. She reported patient started taking sour citrus vitamin gummies ~2-3 weeks ago. Advised to stop these and take regular, non sour gummies. Diet was advanced and she tolerated well. Stable for discharge home. Discussed this seems to most likely be an allergic reaction to something in the food she ate. Recommended avoidance of these trigger foods and follow up with PCP. Discuss possible allergy testing. Dr. Whittington recommended stopping Montelukast given a possibility of a reaction to this medication. Medications: Prednisone 7 day taper Epi pen prescribed for use if develops a reaction again. stop Montelukast as recommended by Dr. Whittington continue other home medications / leveocetirizine as previously prescribed Follow up: PCP 3-5 day Physical Exam: GEN: Alert, oriented, NAD HEENT: no swelling of tongue, +mild fissured tongue. no other oral lesions CV: regular rate/rhythm, no edema Pulm: Nonlabored respirations on room air, clear bilaterally ABD: soft, nontender, nondistended Neuro: Normal speech, normal affect Vital Signs/Physical Exam: Temp Pulse Resp BP Pulse Ox 96.7 F L 87 16 108/79 97 05/08/23 16:00 05/08/23 16:00 05/08/23 16:00 05/08/23 16:00 05/08/23 16:00 Laboratory Data at Discharge: WBC 15.40 thou/uL (4.3-10.9) H 05/08/23 02:25 Hgb 13.5 g/dL (12.0-15.0) 05/08/23 02:25 Hct 40.1 % (36.0-45.0) 05/08/23 02:25 Plt Count 429 thou/uL (152-406) H 05/08/23 02:25 Sodium 139 mEq/L (136-145) 05/08/23 02:25 Potassium 4.0 mEq/L (3.5-5.1) 05/08/23 02:25 BUN 8 mg/dL (7-18) 05/08/23 02:25 Creatinine 0.71 mg/dL (0.55-1.02) 05/08/23 02:25 Glucose 118 mg/dL (74-106) H 05/08/23 02:25 Home Medications: EPINEPHrine [Symjepi] 0.3 mg IJ DIRECTED PRN #2 syr 05/08/23 predniSONE [Deltasone] 20 mg PO SEECOM 7 Days #11 tab 05/08/23 New Medications: predniSONE [Deltasone] 20 mg PO SEECOM 7 Days #11 tab EPINEPHrine [Symjepi] 0.3 mg IJ DIRECTED PRN #2 syr PRN Reason: Allergies Physician Discharge Instructions: Physician discharge instructions: Patient presented with swelling of tongue after eating fish. Patient reported she had a similar episode ~1 week ago after eating fish from the same place, raising concern for an allergic reaction to either the fish or whatever it was prepared with. Patient was given IV steroids, IV benadryl and had some improvement of her symptoms, with resolution of her swelling. Patient's mother also reported patient has been complaining of some rawness of the tongue for the last week - with pain when drinking lemonade. She reported patient started taking sour citrus vitamin gummies ~2-3 weeks ago. Advised to stop these and take regular, non sour gummies. Diet was advanced and she tolerated well. Stable for discharge home. Discussed this seems to most likely be an allergic reaction to something in the food she ate. Recommended avoidance of these trigger foods and follow up with PCP. Discuss possible allergy testing. Dr. Whittington recommended stopping Montelukast given a possibility of a reaction to this medication. PROBLEM: Angioedema GOAL: Clear understanding of disease process INSTRUCTIONS: Diet: Activity: DME DME: Date Ordered: Name of Company: [employer] Services Needed: Name of Company: Date or Referral: IMMUNIZATION Influenza Vaccine Indicated: Yes Influenza Vaccine Given: Date Given: Pneumonia Vaccine Indicated: No Pneumonia Vaccine Given: Date Given: Medications: Prednisone 7 day taper Epi pen prescribed for use if develops a reaction again. stop Montelukast as recommended by Dr. Whittington continue other home medications / leveocetirizine as previously prescribed Follow up: PCP 3-5 days Followup: Rupert Mabry MD [Primary Care Provider] - Time spent managing pt's care (in minutes): 45
== END 2023-05-08 16:30 | disposition home or self-care (01) | DRG 916 ==
LOC: ER 00:14 → ERHOLD 03:01 → 3RD-ICU 03:55
PROVIDERS: ADMIT Internal Medicine Sleep Medicine; ATTEND Hospitalist
DX: T78.3XXA Angioneurotic edema, initial encounter (principal); K14.5 Plicated tongue; Q90.9 Down syndrome, unspecified; T78.1XXA Other adverse food reactions, not elsewhere classified, initial encounter; Z79.52 Long term (current) use of systemic steroids
CPT/HCPCS: 36415; 80048; 85025; 96361; 96374; 96375; 99285; J1200; J2920; J2930; J7030